=== PATIENT | female | born 1990 | race Caucasian/White ===

== ENCOUNTER → 2016-07-20 | Outpatient (CLI) | payer OTHER, MEDICAID ==
[~2016-07-20] MED LIST: ALPR0.25 PO; HYDR-757 PO; LANS30TA3 PO; NAPR550T PO; NORG1TAB15; OXYC-12 PO; PREN1TAB39 PO; TIZA4TAB3
--- NOTE | 2016-07-20 16:39 | Diagnostic Imaging Report ---
First trimester OB ultrasound. INDICATION: Dating. FINDINGS: There is a normal-appearing single intrauterine . An embryo is seen with cardiac activity at 161 beats per minute. The crown-rump length is at 10 weeks and 6 days. LACEY is 02/09/17. The ovaries are obscured by bowel gas. IMPRESSION: Live single intrauterine . Dictated by: Dictated on workstation # [id number]
== END ==
LOC: RAD 16:15
PROVIDERS: ATTEND Family Medicine
DX: Z34.81 Encounter for supervision of other normal pregnancy, first trimester (principal)
CPT/HCPCS: 76801

== ENCOUNTER → 2016-08-28 | Outpatient (CLI) | payer OTHER, MEDICAID ==
--- NOTE | 2016-08-28 16:10 | Diagnostic Imaging Report ---
Renal arterial duplex ultrasound. INDICATION: Hypertension. FINDINGS: The right kidney is 12.2 and the left kidney is 10.8 cm in length. There is no hydronephrosis. The renal artery velocities are 131, 129 and 110 cm/sec from proximal to distal on the right side and on the left 91, 128, and 91 cm/sec. The resistive index on the right kidney is 0.56 to 0.62 and on the left side is 0.54-0.62. The urinary bladder appears unremarkable. IMPRESSION: Unremarkable exam. No evidence of renal artery stenosis. Dictated by: Dictated on workstation # [id number]
== END ==
LOC: RAD 08:48
PROVIDERS: ATTEND Family Medicine
DX: R03.0 Elevated blood-pressure reading, without diagnosis of hypertension (principal)
CPT/HCPCS: 93975

== ENCOUNTER → 2016-09-22 | Outpatient (CLI) | payer OTHER, MEDICAID ==
--- NOTE | 2016-09-22 16:27 | Diagnostic Imaging Report ---
INDICATION: survey. COMPARISON: 07/20/2016. DISCUSSION: Transabdominal sonographic evaluation of the gravid uterus was performed. Single live intrauterine at 19 weeks 3 days by sonographic measurements. Appropriate interval growth from the first ultrasound. EDC by today's ultrasound is 02/13/2017. presentation is breech. Normal amniotic fluid index. Grade 1 placenta is located posteriorly with no placenta previa. heart rate measures 142 beats per minute. There is good visualization of the kidneys, bladder, stomach, brain, four-chamber heart, three-vessel cord and insertion, spine, and extremities. Biparietal diameter measures 4.4 cm. Head circumference measures 16.4 cm. Abdominal circumference measures 13.8 cm. Femur length measures 3 cm. No abnormal adnexal mass or fluid. Estimated weight is 281 g. IMPRESSION: 1. Single live intrauterine at 19 weeks 3 days by sonographic measurements. 2. Normal anatomical survey. Dictated by: Dictated on workstation # [id number]
== END ==
LOC: RAD 15:45
PROVIDERS: ATTEND Family Medicine
DX: Z36 Encounter for antenatal screening of mother (principal); Z3A.19 19 weeks gestation of pregnancy
CPT/HCPCS: 76805

== ENCOUNTER 2016-10-31 15:30 | Outpatient (CLI) | payer OTHER, MEDICAID ==
[~2016-10-31] VITALS: Ht 167.6 cm; Wt 65.3 kg
[2016-10-31 16:16] VITALS: BP 120/71
[2016-10-31 16:46] VITALS: BP 118/69
[2016-10-31 17:16] VITALS: BP 115/72
[2016-10-31] MEDS ORDERED: SERT25TA5 PO (17:37)
[2016-10-31] MEDS ORDERED: PREN1TAB86 PO (17:37)
--- NOTE | 2016-10-31 17:41 | Diagnostic Imaging Report ---
Indication: Pelvic pain, vaginal bleeding, . Comparison: 09/22/2016. Discussion: Transabdominal sonographic evaluation of the gravid uterus was performed on a limited basis. The cervix is closed and measures 4.5 cm. presentation is cephalic. Single live intrauterine is demonstrated. Gestational age by the first ultrasound is 25 weeks 4 days. EDC by the first ultrasound is 02/09/2017. heart rate measures 153 beats per minute. No acute abnormality identified. No abnormal adnexal mass or fluid. Grade 1 placenta is located posteriorly with no placenta previa. Impression: Single live intrauterine with no acute abnormality identified. Dictated by: Dictated on workstation # [id number]
[2016-10-31 18:15] VITALS: BP 115/72
--- NOTE | 2016-11-01 09:04 | Clinic Account Progress/Dx ---
Clinic Account Progress/Dx DIAGNOSIS: Diagnosis 25 week gestation Hematuria Low back pain Normal ultrasound, no active bleeding, possible kidney stone OMRGAN SIU MD November 01, 2016 09:04
== END 2016-10-31 18:15 | disposition home or self-care (01) ==
LOC: WSo 15:30 → LDRP 15:30 → WSo 18:15
PROVIDERS: ATTEND Family Medicine
DX: O99.89 Other specified diseases and conditions complicating pregnancy, childbirth and the puerperium (principal); R31.9 Hematuria, unspecified; M54.5 Low back pain; Z3A.25 25 weeks gestation of pregnancy
CPT/HCPCS: 76815; 99213

== ENCOUNTER 2016-12-23 16:28 | Outpatient (CLI) | payer OTHER, MEDICAID ==
[~2016-12-23] VITALS: Ht 167.6 cm; Wt 68.9 kg
[~2016-12-23 16:28] MED LIST changes: +PREN1TAB86 PO; +SERT25TA5 PO
[2016-12-23 16:53] VITALS: BP 124/71
[2016-12-23] MEDS ORDERED: NS IV 1000 ML 1,000 ML IV ONE (17:00)
[2016-12-23] MEDS ORDERED: BETAMETHASONE ACE/NA PHOS 6 MG/ML (CELESTONE SOLUSPAN) IM SCH (17:00)
--- NOTE | 2016-12-23 18:22 | Diagnostic Imaging Report ---
EXAM: US LIMITED [id number] INDICATION: ?leaking fluid COMPARISON: Obstetrical ultrasound 10/31/2016. FINDINGS: There is a single intrauterine fetus in the cephalic presentation. There is a grade 2 fundal placenta. heart rate measures 150 beats per minute. GAEL measures 7.4 cm with a tallest vertical pocket of 3.4 cm. Cervical length is 3.5 cm. IMPRESSION: GAEL measures 7.4 cm with the tallest vertical pocket measuring 3.4 cm. Dictated by: Dictated on workstation # [id number]
[2016-12-23] MEDS ORDERED: TERBUTALINE INJ 1 MG/ML (BRETHINE) AMP SC ONE (19:00)
[2016-12-23] MEDS ORDERED: NS IV 1000 ML 1,000 ML IV SCH (19:00)
[2016-12-23] MEDS: TERBUTALINE INJ 1 MG/ML (BRETHINE) AMP SC PRN ×2 (20:05→21:12)
[2016-12-23 22:12] VITALS: BP 120/64
[2016-12-23 22:30] VITALS: BP 120/64
--- NOTE | 2016-12-24 11:30 | Physician Query-Final Dx ---
NAHUN HEAD 12/24/16 1130: Clinic Account Progress/Dx Physician Query: Please give diagnosis Date of Service Dec 23, 2016 at 16:28 MORGAN SIU MD 12/25/16 1154: Clinic Account Progress/Dx DIAGNOSIS: Diagnosis contractions Third trimester bleeding 32 weeks gestation NAHUN HEAD Dec 24, 2016 11:30 MORGAN SUI MD Dec 25, 2016 11:54
== END 2016-12-23 22:30 | disposition home or self-care (01) ==
LOC: LDRP 16:28 → WSo 16:28
PROVIDERS: ATTEND Family Medicine
DX: O60.03 Preterm labor without delivery, third trimester (principal); O46.93 Antepartum hemorrhage, unspecified, third trimester; Z3A.32 32 weeks gestation of pregnancy
CPT/HCPCS: 76815; 96360; 96361; 96372; 99214

== ENCOUNTER 2016-12-24 16:54 | Outpatient (CLI) | payer OTHER, MEDICAID ==
[~2016-12-24 16:54] MED LIST changes: +BETAMETHASONE ACE/NA PHOS 6 MG/ML (CELESTONE SOLUSPAN) ONE
[2016-12-24] MEDS ORDERED: BETAMETHASONE ACE/NA PHOS 6 MG/ML (CELESTONE SOLUSPAN) IM SCH (17:00)
--- NOTE | 2016-12-25 10:14 | Physician Query-Final Dx ---
JEAN SILVA 12/25/16 1014: Clinic Account Progress/Dx Physician Query: Please give diagnosis Date of Service Dec 24, 2016 at 16:54 MORGAN SIU MD 12/25/16 1155: Clinic Account Progress/Dx DIAGNOSIS: Diagnosis contractions JEAN SILVA Dec 25, 2016 10:14 MORGAN SIU MD Dec 25, 2016 11:55
== END 2016-12-24 17:04 | disposition home or self-care (01) ==
LOC: WSo 16:54 → LDRP 16:55 → WSo 17:04
PROVIDERS: ATTEND Family Medicine
DX: O60.00 Preterm labor without delivery, unspecified trimester (principal)
CPT/HCPCS: 96372

== ENCOUNTER 2017-01-15 13:06 | Outpatient (CLI) | payer OTHER, MEDICAID ==
[~2017-01-15 13:06] MED LIST changes: -BETAMETHASONE ACE/NA PHOS 6 MG/ML (CELESTONE SOLUSPAN) ONE
--- NOTE | 2017-01-15 14:20 | Diagnostic Imaging Report ---
INDICATION: Followup maternal gestational hypertension. TECHNIQUE: Multiple real-time grayscale images were obtained over the gravid uterus. COMPARISON: 12/23/2016, 10/31/2016 and 09/22/2016. FINDINGS: Single live intrauterine at 35 weeks 4 days by today's sonographic measurements. Appropriate interval growth. EDC by today's ultrasound is 02/15/2017. presentation is cephalic. There is normal breathing, body movement, tone, and and a normal amniotic fluid index measuring 10 cm for a normal biophysical profile score of 8/8. heart rate measures 155 beats per minute. Grade 2 placenta is located posteriorly with no placenta previa. No acute abnormality identified. Biometrical measurements are as follows: Biparietal 8.8 cm, age 35 weeks 5 days. Head circumference 31.6 cm, age 35 weeks 4 days. Abdominal circumference 31.7 cm, age 35 weeks 5 days. Femur length 6.9 cm, age 35 weeks 2 days. Sonographic estimate age: 35 weeks 4 days. Sonographic estimated date of delivery: 02/15/17. Estimated Weight: 2691 gm (+/- 393 gm). LMP percentile: 28%. heart rate: 155 beats per minute. number: 1 of 1. IMPRESSION: Single live intrauterine at 35 weeks 4 days by today's sonographic measurements with a normal biophysical profile score of 8/8. Dictated by: Dictated on workstation # [id number]
[2017-01-15 14:45] VITALS: BP 130/80
== END 2017-01-15 14:45 | disposition home or self-care (01) ==
LOC: RAD 13:06
PROVIDERS: ATTEND Family Medicine
DX: O13.3 Gestational [pregnancy-induced] hypertension without significant proteinuria, third trimester (principal); Z3A.35 35 weeks gestation of pregnancy
CPT/HCPCS: 76805; 76819

== ENCOUNTER 2017-02-10 06:00 | Inpatient (IN) | payer OTHER, MEDICAID ==
[~2017-02-10] VITALS: Ht 167.6 cm; Wt 70.4 kg
[2017-02-10] VITALS (61 sets, daily range): BP systolic 102–161; BP diastolic 54–91
[2017-02-10] MEDS ORDERED: D5 LR IV SOLUTION 1,000 ML IV ONE (06:03)
--- OUTSIDE RECORDS SUMMARY | 2017-02-10 06:14 | XMS REPORT ---
Author Author MORGAN SIU [facility] eClinicalWorks Address Unknown Phone Unavailable Care Team Providers Care Wet End Tester Name Role Phone MORGAN SIU Unavailable Allergies No Known Allergies Problems Problem Type Condition Code Onset Dates Condition Status Problem Palpitations R00.2 Active Problem Panic attacks F41.0 Active Problem Tension headache, chronic G44.229 Active Medications Medication Code System Code Instructions Start Date End Date Status Dosage Tizanidine HCl [facility] [address]-99 4 MG Orally every 8 hrs October 01, 2015 1 tablet as needed Results No Known Results Summary Purpose eClinicalWorks Submission
--- OUTSIDE RECORDS SUMMARY | 2017-02-10 06:14 | XMS REPORT ---
Author MELANIE Cedeño Organization eClinicalWorks Address Unknown Phone Unavailable Care Team Providers Care Garnett Machine Operator Helper Name Role Phone MELANIE FRAZIER CP Unavailable Allergies, Adverse Reactions, Alerts Substance Reaction Event Type N.K.D.A. Info Not Available Non Drug Allergy Problems Problem Type Condition Code Onset Dates Condition Status Assessment Acute right-sided low back pain with right-sided sciatica M54.41 Active Problem Nummular eczema L30.0 Active Problem Polyarthralgia M25.50 Active Problem Acute right-sided low back pain with right-sided sciatica M54.41 Active Problem Palpitations R00.2 Active Problem Panic attacks F41.0 Active Problem Cervical high risk human papillomavirus (HPV) DNA test positive R87.810 Active Problem Tension headache, chronic G44.229 Active Medications Medication Code System Code Instructions Start Date End Date Status Dosage Morris [facility] [address]-49 5-325 MG Orally every 6 hrs May 04, 2016 1 tablet as needed Alprazolam [facility] [address]-68 0.25 MG Orally Three times a day as needed September 10, 2014 1-2 tablets Cymbalta [facility] [address]-31 30 MG Orally Once a day 1 capsule PredniSONE [facility] [address]-00 20 mg Orally Once a day May 04, 2016 May 09, 2016 2 tablets Tizanidine HCl [facility] [address]-62 4 MG Orally every 8 hrs October 01, 2015 1 tablet as needed Propranolol HCl [facility] [address]-37 40 mg Orally Twice a day Mar 05, 2016 1 tablet Procedures Procedure Coding System Code Date Office Visit, Est Pt., Level 3 CPT-4 20222 May 04, 2016 Vital Signs Date/Time: May 04, 2016 Cardiac Monitoring Heart Rate 106 bpm Weight 129.4 lbs Height 66 in BMI 20.88 Index Blood Pressure Diastolic 88 mmHg Blood Pressure Systolic 150 mmHg Results No Known Results Summary Purpose eClinicalWorks Submission
--- OUTSIDE RECORDS SUMMARY | 2017-02-10 06:15 | XMS REPORT ---
Author Author MORGAN SIU [facility] Address [address] [place] [address] Care Team Providers Care County Court Judge Name Role Phone MORGAN SIU Unavailable PROBLEMS Type Condition ICD9-CM Code [id number] Code Onset Dates Condition Status SNOMED Code Problem Cervical high risk human papillomavirus (HPV) DNA test positive R87.810 Active 740206034 Problem Tension headache, chronic G44.229 Active 131574670 Problem Palpitations R00.2 Active 39539831 Problem Panic attacks F41.0 Active 327025486 ALLERGIES Unknown Allergies SOCIAL HISTORY No smoking Hx information available PLAN OF CARE VITAL SIGNS MEDICATIONS Unknown Medications RESULTS No Results PROCEDURES No Known procedures IMMUNIZATIONS No Known Immunizations
--- OUTSIDE RECORDS SUMMARY | 2017-02-10 06:15 | XMS REPORT ---
Author Author MORGAN SIU [facility] eClinicalWorks Address Unknown Phone Unavailable Care Team Providers Care Field Secretary Name Role Phone MORGAN SIU Unavailable Allergies No Known Allergies Problems Problem Type Condition Code Onset Dates Condition Status Problem Palpitations R00.2 Active Problem Panic attacks F41.0 Active Problem Tension headache, chronic G44.229 Active Assessment Panic attacks F41.0 Active Assessment Chronic prescription benzodiazepine use Z79.899 Active Medications No Known Medications Results No Known Results Summary Purpose eClinicalWorks Submission
--- OUTSIDE RECORDS SUMMARY | 2017-02-10 06:15 | XMS REPORT ---
Author ZAIRE [facility] eClinicalWorks Address Unknown Phone Unavailable Care Team Providers Care Home Therapy Clinician Name Role Phone ZAIRE WATSON CP Unavailable Allergies, Adverse Reactions, Alerts Substance Reaction Event Type N.K.D.A. Info Not Available Non Drug Allergy Problems Problem Type Condition Code Onset Dates Condition Status Problem Palpitations 785.1 Active Problem Anxiety state, unspecified 300.00 Active Problem Metrorrhagia 626.6 Active Assessment Dyspepsia K30 Active Medications Medication Code System Code Instructions Start Date End Date Status Dosage Omeprazole [facility] [address]-46 20 MG Orally Once a day Apr 15, 2015 1 capsule Alprazolam [facility] [address]-00 0.25 MG Orally Three times a day as needed September 10, 2014 1-2 tablets Ortho Tri-Cyclen (28) [facility] [address]-92 0.18/0.215/0.25 MG-35 MCG Orally Once a day November 21, 2014 1 tablet Procedures Procedure Coding System Code Date Office Visit, Est Pt., Level 3 CPT-4 84997 Apr 15, 2015 IMMUNOASSAY,INFECTIOUS AGENT CPT-4 64955 Apr 15, 2015 Vital Signs Date/Time: Apr 15, 2015 Temperature 98.0 F Weight 123 lbs Height 66 in BMI 19.85 Index Blood Pressure Diastolic 62 mmHg Blood Pressure Systolic 112 mmHg Cardiac Monitoring Heart Rate 70 bpm Results Name Result Date Reference Range Unit Abnormality Flag H PYLORI (IN HOUSE) Summary Purpose eClinicalWorks Submission
--- OUTSIDE RECORDS SUMMARY | 2017-02-10 06:15 | XMS REPORT ---
Author Author MORGAN SIU [facility] eClinicalWorks Address Unknown Phone Unavailable Care Team Providers Care Measurement Coordinator Name Role Phone MORGAN SIU CP Unavailable Allergies, Adverse Reactions, Alerts Substance Reaction Event Type N.K.D.A. Info Not Available Non Drug Allergy Problems Problem Type Condition Code Onset Dates Condition Status Assessment Polyarthralgia M25.50 Active Assessment Elevated blood pressure reading R03.0 Active Assessment Nummular eczema L30.0 Active Problem Polyarthralgia M25.50 Active Problem Cervical high risk human papillomavirus (HPV) DNA test positive R87.810 Active Problem Nummular eczema L30.0 Active Problem Panic attacks F41.0 Active Assessment Palpitations R00.2 Active Problem Tension headache, chronic G44.229 Active Problem Palpitations R00.2 Active Medications Medication Code System Code Instructions Start Date End Date Status Dosage Cymbalta [facility] [address]-18 30 MG Orally Once a day 1 capsule Tizanidine HCl [facility] [address]-43 4 MG Orally every 8 hrs October 01, 2015 1 tablet as needed Propranolol HCl [facility] [address]-47 40 mg Orally Twice a day Mar 05, 2016 1 tablet Alprazolam [facility] [address]-11 0.25 MG Orally Three times a day as needed September 10, 2014 1-2 tablets Procedures Procedure Coding System Code Date Office Visit, Est Pt., Level 3 CPT-4 57013 Apr 24, 2016 Vital Signs Date/Time: Apr 24, 2016 Cardiac Monitoring Heart Rate 76 bpm Weight 125.9 lbs Height 66 in BMI 20.32 Index Blood Pressure Diastolic 70 mmHg Blood Pressure Systolic 116 mmHg Results No Known Results Summary Purpose eClinicalWorks Submission
--- OUTSIDE RECORDS SUMMARY | 2017-02-10 06:15 | XMS REPORT ---
Author Author MORGAN SIU [facility] eClinicalWorks Address Unknown Phone Unavailable Care Team Providers Care Filling Hand Name Role Phone MORGAN SIU Unavailable Allergies No Known Allergies Problems Problem Type Condition Code Onset Dates Condition Status Problem Tension headache, chronic G44.229 Active Problem Palpitations R00.2 Active Problem Cervical high risk human papillomavirus (HPV) DNA test positive R87.810 Active Problem Panic attacks F41.0 Active Assessment Encounter for immunization Z23 Active Medications No Known Medications Procedures Procedure Coding System Code Date SINGLE IMMUNIZATION ADMIN CPT-4 87236 Mar 17, 2016 FLUARIX QUAD P-FREE 3 AND UP .50 2015 CPT-4 94904 Mar 17, 2016 Results No Known Results Immunizations Vaccine Administration Date FLUARIX QUAD P-FREE 3 AND UP .50 2015Mar 17, 2016 Summary Purpose eClinicalWorks Submission
--- OUTSIDE RECORDS SUMMARY | 2017-02-10 06:15 | XMS REPORT ---
Author Author MELANIE FRAZIER Organization eClinicalWorks Address Unknown Phone Unavailable Care Team Providers Care Ssis Developer Name Role Phone MELANIE FRAZIER CP Unavailable Allergies, Adverse Reactions, Alerts Substance Reaction Event Type N.K.D.A. Info Not Available Non Drug Allergy Problems Problem Type Condition Code Onset Dates Condition Status Problem Palpitations R00.2 Active Problem Panic attacks F41.0 Active Problem Tension headache, chronic G44.229 Active Assessment Bronchitis J40 Active Medications Medication Code System Code Instructions Start Date End Date Status Dosage Amoxicillin [facility] [address]-05 875 MG Orally every 12 hrs Jan 26, 2016 Feb 05, 2016 1 tablet Ortho Tri-Cyclen (28) [facility] 61727265831 0.18/0.215/0.25 MG-35 MCG Orally Once a day 1 tablet Alprazolam [facility] [address]-90 0.25 MG Orally Three times a day as needed September 10, 2014 1-2 tablets PredniSONE [facility] [address]-11 20 mg Orally Once a day Jan 29, 2016 Feb 03, 2016 2 tablets Promethazine-Codeine [facility] [address]-58 6.25-10 MG/5ML Orally every 6 hrs Jan 29, 2016 5 ml as needed Tylenol [facility] [address]-60 325 MG Orally every 6 hrs 1 tablet as needed Ibuprofen [facility] [address]-72 200 MG Orally every 6 hrs 1 tablet as needed Procedures Procedure Coding System Code Date THER/PROPH/DIAG INJ, SC/IM CPT-4 45121 Jan 29, 2016 Office Visit, Est Pt., Level 3 CPT-4 04999 Jan 29, 2016 SOLUMEDROL (UP TO 125 MG) CPT-4 J2930 Jan 29, 2016 Vital Signs Date/Time: Jan 29, 2016 Cardiac Monitoring Heart Rate 84 bpm Weight 125.6 lbs Height 66 in BMI 20.27 Index Blood Pressure Diastolic 92 mmHg Blood Pressure Systolic 140 mmHg Results No Known Results Summary Purpose eClinicalWorks Submission
--- OUTSIDE RECORDS SUMMARY | 2017-02-10 06:15 | XMS REPORT ---
Author MELANIE Cedeño Organization eClinicalWorks Address Unknown Phone Unavailable Care Team Providers Care Model Maker Scale Name Role Phone MELANIE FRAZIER CP Unavailable Allergies, Adverse Reactions, Alerts Substance Reaction Event Type N.K.D.A. Info Not Available Non Drug Allergy Problems Problem Type Condition Code Onset Dates Condition Status Problem Panic attacks F41.0 Active Assessment Ganglion of wrist, right M67.431 Active Problem Palpitations R00.2 Active Medications Medication Code System Code Instructions Start Date End Date Status Dosage Alprazolam [facility] [address]-33 0.25 MG Orally Three times a day as needed September 10, 2014 1-2 tablets Procedures Procedure Coding System Code Date ASPIRATE/INJ GANGLION CYST CPT-4 87935 Jul 19, 2015 Vital Signs Date/Time: Jul 19, 2015 Temperature 98.1 F Weight 124.1 lbs Height 66 in BMI 20.03 Index Blood Pressure Diastolic 70 mmHg Blood Pressure Systolic 118 mmHg Cardiac Monitoring Heart Rate 92 bpm Results No Known Results Summary Purpose eClinicalWorks Submission
--- OUTSIDE RECORDS SUMMARY | 2017-02-10 06:15 | XMS REPORT ---
Author Author ZAIRE WATSON Organization eClinicalWorks Address Unknown Phone Unavailable Care Team Providers Care Skin Care Instructor Name Role Phone ZAIRE WATSON Unavailable Allergies No Known Allergies Problems Problem Type Condition Code Onset Dates Condition Status Problem Palpitations 785.1 Active Problem Anxiety state, unspecified 300.00 Active Problem Metrorrhagia 626.6 Active Medications Medication Code System Code Instructions Start Date End Date Status Dosage Carafate [facility] [address]-41 1 GM Orally Twice a day Apr 18, 2015 1 tablet on an empty stomach Results No Known Results Summary Purpose eClinicalWorks Submission
--- OUTSIDE RECORDS SUMMARY | 2017-02-10 06:15 | XMS REPORT ---
Author Author DIEUDONNE FU Organization [facility] Address [address] [place] [address] Care Team Providers Care Dye Lab Technician Name Role Phone DIEUDONNE FU Unavailable PROBLEMS Type Condition ICD9-CM Code [id number] Code Onset Dates Condition Status SNOMED Code Problem Tension headache, chronic G44.229 Active 423925020 Problem Palpitations R00.2 Active 41619234 Assessment Encounter for surveillance of contraceptive pills Z30.41 Dec, Active 593914508 Assessment Breast screening Z12.39 Dec, Active 471243098 Problem Panic attacks F41.0 Active 637915133 Assessment Well woman exam with routine gynecological exam Z01.419 Dec Active 545807772 ALLERGIES Substance Reaction Event Type Date Status N.K.D.A. Unknown Non Drug Allergy Dec, Unknown SOCIAL HISTORY No smoking Hx information available PLAN OF CARE VITAL SIGNS Height 66 in 2016-01-08 Weight 125.8 lbs 2016-01-08 Heart Rate 88 bpm 2016-01-08 Respiratory Rate 20 2016-01-08 BMI 20.30 kg/m2 2016-01-08 Blood pressure systolic 116 mmHg 2016-01-08 Blood pressure diastolic 72 mmHg 2016-01-08 MEDICATIONS Medication Instructions Dosage Frequency Start Date End Date Duration Status Alprazolam 0.25 MG Orally Three times a day as needed 1-2 tablets Aug Active Ortho Tri-Cyclen (28) 0.18/0.215/0.25 MG-35 MCG Orally Once a day 1 tablet 24h 28 Active Tylenol 325 MG Orally every 6 hrs 1 tablet as needed 6h Active Ibuprofen 200 MG Orally every 6 hrs 1 tablet as needed 6h Active RESULTS Name Result Date Reference Range PDF Report 2016-01-08 PDF Report1 LCLS PAP TEST, HPV IF ASCUS 2016-01-08 DIAGNOSIS: Recommendation: Specimen adequacy: Clinician provided ICD10: Performed by: Electronically signed by: . . Pathologist provided ICD10: Note: . HPV, high-risk Positive Negative PROCEDURES Procedure Date Ordered Related Diagnosis Body Site SPECIMEN HANDLING January 08, 2016 Preventive Care Est Pt. Age 18-39 January 08, 2016 IMMUNIZATIONS No Known Immunizations
--- OUTSIDE RECORDS SUMMARY | 2017-02-10 06:15 | XMS REPORT ---
Author Author MORGAN SIU [facility] Address [address] [place] [address] Care Team Providers Care Hair Blender Name Role Phone SALBADOR MORGAN Unavailable PROBLEMS Type Condition ICD9-CM Code [id number] Code Onset Dates Condition Status SNOMED Code Assessment Elevated blood pressure I10 Feb, Active 64926766 Assessment Right wrist pain M25.531 Feb, Active 80973614 Assessment Right upper quadrant pain R10.11 Feb, Active 854082307 Problem Tension headache, chronic G44.229 Active 282599914 Problem Palpitations R00.2 Active 13322640 Assessment Rash R21 Feb, Active 824874966 Assessment Multiple stiff joints M25.60 Feb, Active 608679815 Problem Panic attacks F41.0 Active 373298233 Assessment Palpitations R00.2 Feb, Active 31851078 ALLERGIES Substance Reaction Event Type Date Status N.K.D.A. Unknown Non Drug Allergy Feb, Unknown SOCIAL HISTORY No smoking Hx information available PLAN OF CARE VITAL SIGNS Height 66 in 2016-03-05 Weight 125.0 lbs 2016-03-05 Heart Rate 88 bpm 2016-03-05 Respiratory Rate 20 2016-03-05 BMI 20.17 kg/m2 2016-03-05 Blood pressure systolic 146 mmHg 2016-03-05 Blood pressure diastolic 90 mmHg 2016-03-05 MEDICATIONS Medication Instructions Dosage Frequency Start Date End Date Duration Status Propranolol HCl 40 mg Orally Twice a day 1 tablet 12h Feb, 30 day(s) Active Tizanidine HCl 4 MG Orally every 8 hrs 1 tablet as needed 8h Sep, Active Ortho Tri-Cyclen (28) 0.18/0.215/0.25 MG-35 MCG Orally Once a day 1 tablet 24h 28 Active Ibuprofen 200 MG Orally every 6 hrs 1 tablet as needed 6h Active Tylenol 325 MG Orally every 6 hrs 1 tablet as needed 6h Active Alprazolam 0.25 MG Orally Three times a day as needed 1-2 tablets Aug Active RESULTS Name Result Date Reference Range BRIGETTE ANALYZER 2016-03-05 BRIGETTE Direct Negative Negative See below: CBC 2016-03-05 WBC 5.2 3.4-10.8 RBC 4.67 3.77-5.28 Hemoglobin 14.0 11.1-15.9 Hematocrit 40.9 34.0-46.6 MCV 88 79-97 MCH 30.0 26.6-33.0 MCHC 34.2 31.5-35.7 RDW 13.5 12.3-15.4 Platelets 336 150-379 Neutrophils 57 Lymphs 36 Monocytes 6 Eos 1 Basos 0 Neutrophils (Absolute) 3.0 1.4-7.0 Lymphs (Absolute) 1.9 0.7-3.1 Monocytes(Absolute) 0.3 0.1-0.9 Eos (Absolute) 0.1 0.0-0.4 Baso (Absolute) 0.0 0.0-0.2 Immature Granulocytes 0 Immature Grans (Abs) 0.0 0.0-0.1 ESR/SED RATE 2016-03-05 Sedimentation Rate-Westergren 8 0-32 RA (RHEUMATOID) FACTOR 2016-03-05 RA Latex Turbid. 11.1 0.0-13.9 CRP 2016-03-05 C-Reactive Protein, Quant 1.3 0.0-4.9 CMP 2016-03-05 Glucose, Serum 88 65-99 BUN 10 6-20 Creatinine, Serum 0.89 0.57-1.00 eGFR If NonAfricn Am 89 >59 eGFR If Africn Am 103 >59 BUN/Creatinine Ratio 11 8-20 Sodium, Serum 142 134-144 Potassium, Serum 4.5 3.5-5.2 Chloride, Serum 100 97-108 Carbon Dioxide, Total 22 18-29 Calcium, Serum 9.5 8.7-10.2 Protein, Total, Serum 7.4 6.0-8.5 Albumin, Serum 4.7 3.5-5.5 Globulin, Total 2.7 1.5-4.5 A/G Ratio 1.7 1.1-2.5 Bilirubin, Total 0.2 0.0-1.2 Alkaline Phosphatase, S 39 39-117 AST (SGOT) 15 0-40 ALT (SGPT) 10 0-32 Xray : Wrist, Right 3 views (IN HOUSE) 2016-03-05 Ultrasound : Gallbladder 2016-03-11 PROCEDURES Procedure Date Ordered Related Diagnosis Body Site COMPLETE CBC W/AUTO DIFF WBC Mar 05, 2016 COMPREHEN METABOLIC PANEL Mar 05, 2016 VENIPUNCT, ROUTINE* Mar 05, 2016 RBC SED RATE, AUTOMATED Mar 05, 2016 Office Visit, Est Pt., Level 3 Mar 05, 2016 ANTINUCLEAR ANTIBODIES Mar 05, 2016 RHEUMATOID FACTOR, QUANT Mar 05, 2016 C-REACTIVE PROTEIN Mar 05, 2016 X-RAY EXAM OF WRIST Mar 05, 2016 IMMUNIZATIONS No Known Immunizations
--- OUTSIDE RECORDS SUMMARY | 2017-02-10 06:16 | XMS REPORT ---
Author Author MORGAN SIU [facility] eClinicalWorks Address Unknown Phone Unavailable Care Team Providers Care Electrical Line Mechanic Name Role Phone MORGAN SIU Unavailable Allergies No Known Allergies Problems Problem Type Condition Code Onset Dates Condition Status Problem Tension headache, chronic G44.229 Active Problem Palpitations R00.2 Active Problem Cervical high risk human papillomavirus (HPV) DNA test positive R87.810 Active Problem Panic attacks F41.0 Active Medications No Known Medications Results No Known Results Summary Purpose eClinicalWorks Submission
--- OUTSIDE RECORDS SUMMARY | 2017-02-10 06:16 | XMS REPORT ---
Author Author MORGAN SIU [facility] eClinicalWorks Address Unknown Phone Unavailable Care Team Providers Care Limited Radiology Technician Name Role Phone MORGAN SIU Unavailable Allergies No Known Allergies Problems Problem Type Condition Code Onset Dates Condition Status Problem Palpitations R00.2 Active Problem Panic attacks F41.0 Active Problem Tension headache, chronic G44.229 Active Assessment Panic attacks F41.0 Active Assessment Chronic prescription benzodiazepine use Z79.899 Active Medications Medication Code System Code Instructions Start Date End Date Status Dosage Alprazolam [facility] [address]-24 0.25 MG Orally Three times a day as needed September 10, 2014 1-2 tablets Results No Known Results Summary Purpose eClinicalWorks Submission
--- OUTSIDE RECORDS SUMMARY | 2017-02-10 06:16 | XMS REPORT ---
Author Author MORGAN SIU [facility] eClinicalWorks Address Unknown Phone Unavailable Care Team Providers Care Breaking Machine Operator Name Role Phone MORGAN SIU Unavailable Allergies No Known Allergies Problems Problem Type Condition Code Onset Dates Condition Status Problem Panic attacks F41.0 Active Problem Palpitations R00.2 Active Medications Medication Code System Code Instructions Start Date End Date Status Dosage Alprazolam [facility] [address]-05 0.25 MG Orally Three times a day as needed September 10, 2014 1-2 tablets Results No Known Results Summary Purpose eClinicalWorks Submission
--- OUTSIDE RECORDS SUMMARY | 2017-02-10 06:16 | XMS REPORT ---
Author Author MORGAN SIU [facility] eClinicalWorks Address Unknown Phone Unavailable Care Team Providers Care Plywood Factory Worker Name Role Phone MORGAN ISU Unavailable Allergies No Known Allergies Problems Problem Type Condition Code Onset Dates Condition Status Problem Other premature beats 427.69 Active Problem Palpitations 785.1 Active Problem Metrorrhagia 626.6 Active Problem Anxiety state, unspecified 300.00 Active Medications Medication Code System Code Instructions Start Date End Date Status Dosage Alprazolam [facility] [address]-35 0.25 MG Orally Three times a day as needed September 10, 2014 1-2 tablets Results No Known Results Summary Purpose eClinicalWorks Submission
--- OUTSIDE RECORDS SUMMARY | 2017-02-10 06:16 | XMS REPORT ---
Author Author MORGAN SIU [facility] eClinicalWorks Address Unknown Phone Unavailable Care Team Providers Care Plate Mill Hand Name Role Phone MORGAN SIU Unavailable Allergies No Known Allergies Problems Problem Type Condition Code Onset Dates Condition Status Problem Tension headache, chronic G44.229 Active Problem Palpitations R00.2 Active Problem Cervical high risk human papillomavirus (HPV) DNA test positive R87.810 Active Problem Panic attacks F41.0 Active Medications Medication Code System Code Instructions Start Date End Date Status Dosage Alprazolam [facility] [address]-46 0.25 MG Orally Three times a day as needed September 10, 2014 1-2 tablets Results No Known Results Summary Purpose eClinicalWorks Submission
--- OUTSIDE RECORDS SUMMARY | 2017-02-10 06:16 | XMS REPORT ---
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 Active 28622362 Problem Tension headache, chronic G44.229 Active 490400886 Problem Palpitations R00.2 Active 68927872 Problem Polyarthralgia M25.50 Active 88597215 Problem Cervical high risk human papillomavirus (HPV) DNA test positive R87.810 Active 867145475 ALLERGIES Unknown Allergies SOCIAL HISTORY No smoking Hx information available PLAN OF CARE VITAL SIGNS MEDICATIONS Medication Instructions Dosage Frequency Start Date End Date Duration Status Alprazolam 0.25 MG Orally Three times a day as needed 1-2 tablets Aug Active RESULTS No Results PROCEDURES No Known procedures IMMUNIZATIONS No Known Immunizations
--- OUTSIDE RECORDS SUMMARY | 2017-02-10 06:16 | XMS REPORT ---
Author Author MORGAN SIU [facility] Address [address] [place] [address] Care Team Providers Care Senior Court Office Assistant Name Role Phone MORGAN SIU Unavailable PROBLEMS Type Condition ICD9-CM Code [id number] Code Onset Dates Condition Status SNOMED Code Problem Tension headache, chronic G44.229 Active 195034588 Problem Palpitations R00.2 Active 01247059 Problem Panic attacks F41.0 Active 084420828 ALLERGIES Unknown Allergies SOCIAL HISTORY No smoking Hx information available PLAN OF CARE VITAL SIGNS MEDICATIONS Medication Instructions Dosage Frequency Start Date End Date Duration Status Alprazolam 0.25 MG Orally Three times a day as needed 1-2 tablets Aug Active RESULTS No Results PROCEDURES No Known procedures IMMUNIZATIONS No Known Immunizations
--- OUTSIDE RECORDS SUMMARY | 2017-02-10 06:16 | XMS REPORT ---
Author Author MORGAN [facility] eClinical[employer] Address Unknown Phone Unavailable Care Team Providers Care Heel Cutter Name Role Phone MORGAN SIU CP Unavailable Allergies, Adverse Reactions, Alerts Substance Reaction Event Type N.K.D.A. Info Not Available Non Drug Allergy Problems Problem Type Condition Code Onset Dates Condition Status Problem Tension headache, chronic G44.229 Active Problem Palpitations R00.2 Active Problem Cervical high risk human papillomavirus (HPV) DNA test positive R87.810 Active Assessment Atypical squamous cells of undetermined significance on cytologic smear of cervix (ASC-US) R87.610 Active Problem Panic attacks F41.0 Active Assessment Cervical high risk human papillomavirus (HPV) DNA test positive R87.810 Active Medications Medication Code System Code Instructions Start Date End Date Status Dosage Ortho Tri-Cyclen (28) [facility] 36280362044 0.18/0.215/0.25 MG-35 MCG Orally Once a day 1 tablet Propranolol HCl [facility] [address]-79 40 mg Orally Twice a day Mar 05, 2016 1 tablet Alprazolam [facility] [address]-60 0.25 MG Orally Three times a day as needed September 10, 2014 1-2 tablets Tylenol [facility] [address]-38 325 MG Orally every 6 hrs 1 tablet as needed Ibuprofen [facility] [address]-78 200 MG Orally every 6 hrs 1 tablet as needed Tizanidine HCl [facility] [address]-53 4 MG Orally every 8 hrs October 01, 2015 1 tablet as needed Procedures Procedure Coding System Code Date BX/CURETT OF CERVIX W/SCOPE CPT-4 45440 Mar 17, 2016 URINE TEST CPT-4 17538 Mar 17, 2016 Vital Signs Date/Time: Mar 17, 2016 Cardiac Monitoring Heart Rate 90 bpm Weight 126.4 lbs Height 66 in BMI 20.40 Index Blood Pressure Diastolic 74 mmHg Blood Pressure Systolic 112 mmHg Results Name Result Date Reference Range Unit Abnormality Flag PDF Report ----PDF Report1 LCLS [id number] PATHOLOGY REPORT TEST, URINE (IN HOUSE) ----RESULTS Negative [id number] ----Lot # [id number] ----Control + [id number] ----Exp date [id number] COLP W/ BX & ECC Summary Purpose eClinicalWorks Submission
--- OUTSIDE RECORDS SUMMARY | 2017-02-10 06:16 | XMS REPORT ---
Author Author KALPESH REVELES Organization eClinicalWorks Address Unknown Phone Unavailable Care Team Providers Care Cafe Manager Name Role Phone KALPESH REVELES CP Unavailable Allergies, Adverse Reactions, Alerts Substance Reaction Event Type N.K.D.A. Info Not Available Non Drug Allergy Problems Problem Type Condition Code Onset Dates Condition Status Problem Palpitations R00.2 Active Problem Panic attacks F41.0 Active Problem Tension headache, chronic G44.229 Active Assessment Frequent headaches R51 Active Medications Medication Code System Code Instructions Start Date End Date Status Dosage Tylenol [facility] [address]-05 325 MG Orally every 6 hrs 1 tablet as needed Ibuprofen [facility] [address]-10 200 MG Orally every 6 hrs 1 tablet as needed Escitalopram Oxalate [facility] [address]-29 10 MG Orally Once a day August 15, 2015 1 tablet Alprazolam [facility] [address]-24 0.25 MG Orally Three times a day as needed September 10, 2014 1-2 tablets Procedures Procedure Coding System Code Date THER/PROPH/DIAG INJ, SC/IM CPT-4 94184 September 26, 2015 Office Visit, Est Pt., Level 3 CPT-4 02338 September 26, 2015 TORADOL (IM) 15 MG/ML (UP TO 15 MG) CPT-4 J1885 September 26, 2015 Vital Signs Date/Time: September 26, 2015 Temperature 97.9 F Weight 120 lbs Height 66 in BMI 19.37 Index Blood Pressure Diastolic 82 mmHg Blood Pressure Systolic 126 mmHg Cardiac Monitoring Heart Rate 86 bpm Results No Known Results Summary Purpose eClinicalWorks Submission
--- OUTSIDE RECORDS SUMMARY | 2017-02-10 06:16 | XMS REPORT ---
Author Author MORGAN SIU [facility] Address [address] [place] [address] Care Team Providers Care Agriculture Professor Name Role Phone MORGAN SIU Unavailable PROBLEMS Type Condition ICD9-CM Code [id number] Code Onset Dates Condition Status SNOMED Code Problem Cervical high risk human papillomavirus (HPV) DNA test positive R87.810 Active 532319878 Problem Tension headache, chronic G44.229 Active 773224974 Problem Palpitations R00.2 Active 02151277 Problem Panic attacks F41.0 Active 484703468 ALLERGIES Unknown Allergies SOCIAL HISTORY No smoking Hx information available PLAN OF CARE VITAL SIGNS MEDICATIONS Unknown Medications RESULTS No Results PROCEDURES No Known procedures IMMUNIZATIONS No Known Immunizations
--- OUTSIDE RECORDS SUMMARY | 2017-02-10 06:16 | XMS REPORT ---
Author Author MORGAN [facility] [employer]ClinicalWorks Address Unknown Phone Unavailable Care Team Providers Care Color Checker Roving Or Yarn Name Role Phone MORGAN SIU CP Unavailable Allergies, Adverse Reactions, Alerts Substance Reaction Event Type N.K.D.A. Info Not Available Non Drug Allergy Problems Problem Type Condition Code Onset Dates Condition Status Problem Palpitations R00.2 Active Problem Panic attacks F41.0 Active Problem Tension headache, chronic G44.229 Active Assessment Chronic tension-type headache, intractable G44.221 Active Medications Medication Code System Code Instructions Start Date End Date Status Dosage Escitalopram Oxalate [facility] [address]-02 10 MG Orally Once a day August 15, 2015 1 tablet Meloxicam [facility] [address]-47 15 MG Orally Once a day October 01, 2015October 1 tablet Tylenol [facility] [address]-83 325 MG Orally every 6 hrs 1 tablet as needed Ibuprofen [facility] [address]-77 200 MG Orally every 6 hrs 1 tablet as needed Tizanidine HCl [facility] [address]-11 4 MG Orally every 8 hrs October 01, 2015 October 15, 2015 1 tablet as needed Alprazolam [facility] [address]-25 0.25 MG Orally Three times a day as needed September 10, 2014 1-2 tablets Procedures Procedure Coding System Code Date Office Visit, Est Pt., Level 3 CPT-4 91085 October 01, 2015 Vital Signs Date/Time: October 01, 2015 Temperature 97.7 F Weight 120 lbs Height 66 in BMI 19.37 Index Blood Pressure Diastolic 77 mmHg Blood Pressure Systolic 124 mmHg Cardiac Monitoring Heart Rate 88 bpm Results No Known Results Summary Purpose eClinicalWorks Submission
--- OUTSIDE RECORDS SUMMARY | 2017-02-10 06:16 | XMS REPORT ---
Author Author ALICIA GLYNN Organization eClinicalWorks Address Unknown Phone Unavailable Care Team Providers Care Physician'S Aide Name Role Phone ALICIA GLYNN CP Unavailable Allergies, Adverse Reactions, Alerts Substance Reaction Event Type N.K.D.A. Info Not Available Non Drug Allergy Problems Problem Type Condition Code Onset Dates Condition Status Problem Palpitations R00.2 Active Problem Panic attacks F41.0 Active Problem Tension headache, chronic G44.229 Active Assessment Sore throat J02.9 Active Assessment Bilateral otitis media, unspecified chronicity, unspecified otitis media type H66.93 Active Medications Medication Code System Code Instructions Start Date End Date Status Dosage Ibuprofen [facility] [address]-22 200 MG Orally every 6 hrs 1 tablet as needed Amoxicillin [facility] [address]-18 875 MG Orally every 12 hrs Jan 26, 2016 Feb 05, 2016 1 tablet Alprazolam [facility] [address]-50 0.25 MG Orally Three times a day as needed September 10, 2014 1-2 tablets Ortho Tri-Cyclen (28) [facility] 38201310551 0.18/0.215/0.25 MG-35 MCG Orally Once a day 1 tablet Tylenol [facility] [address]-25 325 MG Orally every 6 hrs 1 tablet as needed Procedures Procedure Coding System Code Date Office Visit, Est Pt., Level 3 CPT-4 30728 Jan 26, 2016 STREP A ASSAY W/OPTIC CPT-4 58354 Jan 26, 2016 Vital Signs Date/Time: Jan 26, 2016 Cardiac Monitoring Heart Rate 88 bpm Weight 125.4 lbs Height 66 in BMI 20.24 Index Blood Pressure Diastolic 94 mmHg Blood Pressure Systolic 136 mmHg Results No Known Results Summary Purpose eClinicalWorks Submission
[2017-02-10] MEDS ORDERED: OXYTOCIN/NORMAL SALINE 500 ML IV SCH ×2 (06:23→16:12)
[2017-02-10] MEDS ORDERED: MINERAL OIL CONCENTRATE 99.9% 15 ML UDC TOP PRN (06:30)
[2017-02-10] MEDS: D5 LR IV SOLUTION 1,000 ML IV SCH ×2 (06:30→14:26)
[2017-02-10 06:46] LABS: BASOPHILS % (AUTO) 0 % (0-10); EOSINOPHILS # (AUTO) 0.2 10^3/uL (0.0-0.3); EOSINOPHILS % (AUTO) 2 % (0-10); LYMPHOCYTES # (AUTO) 2.2 X 10^3 (1.0-4.0); LYMPHOCYTES % (AUTO) 23 % (12-44); MEAN CORPUSCULAR HEMOGLOBIN 30 PG (25-34); MEAN CORPUSCULAR HGB CONC 34 G/DL (32-36); MEAN CORPUSCULAR VOLUME 88 FL (80-99); MEAN PLATELET VOLUME 10.4 FL (7.4-10.4); MONOCYTES # (AUTO) 0.9 X 10^3 (0.0-1.0); MONOCYTES % (AUTO) 9 % (0-12); NEUTROPHILS # (AUTO) 6.2 X 10^3 (1.8-7.8); NEUTROPHILS % (AUTO) 66 % (42-75); PLATELET COUNT 177 10^3/uL (130-400); RED BLOOD COUNT 4.08 10^6/uL (4.35-5.85); RED CELL DISTRIBUTION WIDTH 13.5 % (10.0-14.5); WHITE BLOOD COUNT 9.5 10^3/uL (4.3-11.0)
[2017-02-10] MEDS ORDERED: LACTATED RINGERS 1,000 ML IV ONE (08:48)
[2017-02-10] MEDS ORDERED: SUFENTA 0.6MCG/ML BUPIVA 0.125 100 ML ONE (08:49)
--- NOTE | 2017-02-10 09:33 | History & Physical-OB ---
OB - Chief Complaint & HPI Date/Time Date of Admission: Date of Admission: Feb 10, 2017 at 6:00 am Time Seen by Provider: 08:45 Chief Complaint/History OB-Reason for Admission/Chief: Induction of Labor Hx : 2 Hx Para: 1 Expected Date of Delivery: Feb 13, 2017 Gestational Age in Weeks: 39 Gestational Age in Days: 4 History of Labs O+, antibody neg, RI, HIV/RPR/Hep B neg. GC/chlamydia neg. Glucola normal. GBS neg. Allergies and Home Medications Allergies Coded Allergies: No Known Drug Allergies (Unverified , 02/01/12) Home Medications Vit W-Ca,Fe,FA(<1 mg) 1 Each Tablet, 1 EACH PO DAILY, (Reported) OB - History Hx of Present Care: Yes Ultrasounds: Normal mid trimester US Obstetrical Complications: Other (intermittent hypertension (predating ), labor treated with betamethasone) Obstetrical History Hx : 2 Hx Para: 1 Hx # Term Pregnancies: 1 Hx # Pregnancies: 0 Number of Living Children: 1 Hx Multiple Gestation: No Hx Ectopic : No Hx Stillbirth: No Hx Complication: No Hx Maternal Gestational Diabet: No Hx Hemorrhage: No Delivery History Hx Dystocia: No Hx Forceps Assisted Delivery: No Hx Vacuum Extraction Assisted: No Hx Placenta Abnormality: No Hx Distress: No Hx Large For Gestational Age I: No Hx Small for Gestational Age I: No Hx Section: No Hx Vaginal Delivery Post C-Sec: No Hx Blood Disorders: No Adverse Rxn to Tranfusion: No Patient Past Medical History PMHx: Anxiety Hypertension Social History/Family History HIV/AIDS: No Recent Infectious Disease Expo: No Alcohol Use: Denies Use Recreational Drug Use: No Smoking Cessation: Never smoker Immunizations Tetanus Booster (TDap): Less than 5yrs Date of Influenza Vaccine: Mar 14, 2015 Rubella: immune RPR/VDRL: Negative GBS Status: Negative HBsAG: Negative OB - Admission Exam Physical Exam Date Seen by Provider: Feb 10, 2017 Time Seen by Provider: 09:31 HEENT: NCAT Abdomen: Non tender Extremities: Normal Cervical Dilatation: 3cm Effacement: 75% Station: +2 Membranes: Intact Heart Rate: 140's Accelerations: Accelerations Present Decelerations: No Decelerations Short Term Variability: Present Shelter Variability: Average (6-25) Contractions on Admission: < 5 Minutes Apart Intensity: Moderate Cruz Scoring Tool (Modified) Dilation (cm): 3-4cm (2) Effacement (%): 51-79% (2) Descent/Station: -3 (0) Cervix Consistency: Soft (2) Cervix Position: Posterior (0) Add 1 point for: Each previous vaginal delivery (1) Cruz Score: 7 Labs Laboratory Tests Test 02/10/17 06:30 Range/Units White Blood Count 9.5 4.3-11.0 10^3/uL Red Blood Count 4.08 L 4.35-5.85 10^6/uL Hemoglobin 12.3 11.5-16.0 G/DL Hematocrit 36 35-52 % Mean Corpuscular Volume 88 80-99 FL Mean Corpuscular Hemoglobin 30 25-34 PG Mean Corpuscular Hemoglobin Concent 34 32-36 G/DL Red Cell Distribution Width 13.5 10.0-14.5 % Platelet Count 177 130-400 10^3/uL Mean Platelet Volume 10.4 7.4-10.4 FL Neutrophils (%) (Auto) 66 42-75 % Lymphocytes (%) (Auto) 23 12-44 % Monocytes (%) (Auto) 9 0-12 % Eosinophils (%) (Auto) 2 0-10 % Basophils (%) (Auto) 0 0-10 % Neutrophils # (Auto) 6.2 1.8-7.8 X 10^3 Lymphocytes # (Auto) 2.2 1.0-4.0 X 10^3 Monocytes # (Auto) 0.9 0.0-1.0 X 10^3 Eosinophils # (Auto) 0.2 0.0-0.3 10^3/uL Basophils # (Auto) 0.0 0.0-0.1 10^3/uL OB - Assessment/Plan/Diagnosis Assessment Assessment: induction of labor Plan Plan: Induction Induction Method: per Pitocin Protocol Other Plan AROM done at 0845 with clear fluid Copy Copies To 1: MORGAN SIU MD, BETHANY N MD Feb 10, 2017 9:33 am
[2017-02-10] MEDS ORDERED: fentaNYL INJECTION 100 MCG/2 ML AMP ONE (10:11)
[2017-02-10] MEDS ORDERED: CATHETER FLUSH 10 ML SYR IV SCH ×2 (14:00→22:00)
--- NOTE | 2017-02-10 16:04 | OB Labor & Delivery Record ---
Vag Delivery Note Vag Delivery Note Date of Delivery: 02/10/17 Preoperative Diagnosis: Kelli Valentino is a 26 /Para 2 / 1,Gestational Age (wks)39with 4 days Postoperative Diagnosis: Same Surgeon: MORGAN SIU Anesthesia: Epidural Delivery Type: spontaneous vaginal delivery Findings: [] Viable female , apgars [], weight [] Lacerations: first degree perineal, periurethral abrasion Intact placenta with 3 vessel cord. No nuchal cord, body cord or shoulder dystocia Estimated Blood Loss: 200 ml Complications: None Condition: Stable Description of Procedure: The patient is a G2 now P2 who presented for elective IOL at term. She was admitted and informed consent was obtained. Her labor course was unremarkable She progressed to complete dilatation and began to push. She was then set up for delivery. The infant's head was delivered atraumatically in the Michi position. The shoulders and remainder of the 's body were then delivered without difficulty. Upon delivery, the infant cried immediately and was placed on maternal abdomen. After a delay, the cord was doubly clamped and cut and the was handed off to the pediatric staff. An intact placenta with 3-vessel cord delivered via Lianne and there was found to be minimal bleeding.~ Vigorous fundal massage was performed and the fundus was found to be firm. IV oxytocin was given. Examination of the vagina and perineum revealed a first degree perineal laceration repaired with one simple interrupted 3-0 rapide. Following the repair, sponge, instrument and needle counts were correct. Mom and baby were both in stable condition in the labor suite. Vitals - Labs Vital Signs - I&O Vital Signs Date Time Temp Pulse Resp B/P (MAP) Pulse Ox O2 Delivery O2 Flow Rate FiO2 02/10/17 12:30 75 18 112/56 97 Room Air 02/10/17 12:15 77 18 122/77 98 Room Air 02/10/17 12:10 76 18 120/61 98 Room Air 02/10/17 12:05 84 18 110/71 99 Room Air 02/10/17 12:00 78 18 127/60 99 Room Air 02/10/17 11:50 91 18 109/54 Room Air 02/10/17 11:45 81 18 120/67 Room Air 02/10/17 11:40 90 18 118/86 Room Air 02/10/17 11:35 85 18 128/66 Room Air 02/10/17 11:30 105 18 130/63 Room Air 02/10/17 11:25 91 18 142/62 Room Air 02/10/17 11:20 78 18 125/61 Room Air 02/10/17 11:15 80 18 107/66 99 Room Air 02/10/17 11:10 84 18 132/58 99 Room Air 02/10/17 11:05 97.5 77 18 102/55 98 Room Air 02/10/17 11:00 80 18 107/66 99 Room Air 02/10/17 10:55 81 18 119/72 Room Air 02/10/17 10:50 78 18 129/58 Room Air 02/10/17 10:45 96 18 127/60 Room Air 02/10/17 10:35 82 18 122/73 100 Room Air 02/10/17 10:30 88 18 125/57 100 Room Air 02/10/17 10:25 93 18 122/63 100 Room Air 02/10/17 10:20 89 18 121/66 99 Room Air 02/10/17 10:15 94 18 115/58 100 Room Air 02/10/17 10:10 111 18 121/61 100 Room Air 02/10/17 10:05 99 18 125/69 100 Room Air 02/10/17 10:00 99 18 100 Room Air 02/10/17 09:56 95 18 129/71 100 Room Air 02/10/17 09:53 87 18 121/66 100 Room Air 02/10/17 09:50 94 20 129/61 100 Room Air 02/10/17 09:45 103 18 142/65 100 Room Air 02/10/17 09:44 97 20 141/81 98 Room Air 02/10/17 09:41 88 20 128/69 Room Air 02/10/17 09:30 88 18 135/68 Room Air 02/10/17 09:15 80 18 129/80 Room Air 02/10/17 09:00 83 18 129/80 Room Air 02/10/17 08:45 83 18 124/90 Room Air 02/10/17 08:30 96 18 137/91 Room Air 02/10/17 08:15 81 18 123/77 Room Air 02/10/17 08:00 88 18 119/82 Room Air 02/10/17 07:45 91 18 119/82 Room Air 8/30/17 07:30 97.3 95 18 134/90 Room Air Labs Laboratory Tests 02/10/17 06:30: White Blood Count 9.5, Red Blood Count 4.08L, Hemoglobin 12.3, Hematocrit 36, Mean Corpuscular Volume 88, Mean Corpuscular Hemoglobin 30, Mean Corpuscular Hemoglobin Concent 34, Red Cell Distribution Width 13.5, Platelet Count 177, Mean Platelet Volume 10.4, Neutrophils (%) (Auto) 66, Lymphocytes (%) (Auto) 23 , Monocytes (%) (Auto) 9, Eosinophils (%) (Auto) 2, Basophils (%) (Auto) 0, Neutrophils # (Auto) 6.2, Lymphocytes # (Auto) 2.2, Monocytes # (Auto) 0.9, Eosinophils # (Auto) 0.2, Basophils # (Auto) 0.0 MORGAN SIU MD Feb 10, 2017 4:04 pm
[2017-02-10] MEDS ORDERED: WITCH HAZEL(TUCKS) 40 EA JAR TOP PRN (16:15)
[2017-02-10] MEDS ORDERED: BENZOCAINE/MENTHOL (DERMOPLAST) 56 ML CAN TP PRN (16:15)
[2017-02-10] MEDS: IBUPROFEN 600 MG (MOTRIN) TAB PO SCH ×2 (18:20→23:57)
[2017-02-11 02:33] VITALS: BP 122/79
[2017-02-11 05:40] LABS: BASOPHILS % (AUTO) 0 % (0-10); EOSINOPHILS # (AUTO) 0.2 10^3/uL (0.0-0.3); EOSINOPHILS % (AUTO) 2 % (0-10); LYMPHOCYTES # (AUTO) 2.3 X 10^3 (1.0-4.0); LYMPHOCYTES % (AUTO) 20 % (12-44); MEAN CORPUSCULAR HEMOGLOBIN 30 PG (25-34); MEAN CORPUSCULAR HGB CONC 34 G/DL (32-36); MEAN CORPUSCULAR VOLUME 89 FL (80-99); MEAN PLATELET VOLUME 10.8 FL (7.4-10.4); MONOCYTES # (AUTO) 0.9 X 10^3 (0.0-1.0); MONOCYTES % (AUTO) 9 % (0-12); NEUTROPHILS # (AUTO) 7.7 X 10^3 (1.8-7.8); NEUTROPHILS % (AUTO) 69 % (42-75); PLATELET COUNT 161 10^3/uL (130-400); RED BLOOD COUNT 3.84 10^6/uL (4.35-5.85); RED CELL DISTRIBUTION WIDTH 13.4 % (10.0-14.5); WHITE BLOOD COUNT 11.1 10^3/uL (4.3-11.0)
[2017-02-11 05:45] VITALS: BP 113/76
[2017-02-11] MEDS: IBUPROFEN 600 MG (MOTRIN) TAB PO SCH ×4 (05:45→17:54)
[2017-02-11] MEDS ORDERED: PRENATAL VITAMIN 1 EA TAB PO SCH (07:00)
[2017-02-11 07:57] VITALS: BP 125/84
[2017-02-11] MEDS ORDERED: HYDROcodone/APAP 5 MG/325 MG (LORTAB) TAB PO PRN (10:00)
[2017-02-11] MEDS ORDERED: HYDR-3812 PO (10:52)
[2017-02-11] MEDS ORDERED: IBUP-1773 PO (10:52)
--- NOTE | 2017-02-11 10:54 | Discharge Instructions ---
Discharge Inst-Women's Serv Depart Medications New, Converted or Re-Newed RX: RX on Chart New Medications: Hydrocodone/Acetaminophen (Hydrocodon -Acetaminophen 5-325) 1 Each Tablet 1 TAB PO Q4H PRN for PAIN-MODERATE, #15 TAB 0 Refills Ibuprofen (Ibuprofen) 600 Mg Tablet 600 MG PO Q6H PRN for PAIN-MILD TO MODERATE, #60 TAB 0 Refills Continued Medications: Vit W-Ca,Fe,FA(<1 mg) ( Vitamins) 1 Each Tablet 1 EACH PO DAILY, TAB Follow Up/Instructions Goal/Follow Up: Follow up with Dr. Chaney in 6 weeks for visit. Activity Activity: Activity as Tolerated (avoid strenuous acitivity x 6 weeks) Driving Instructions: You May Drive (do not drive while on sedating pain medications) Nothing Inside Vagina: No Douching, No Prosperity, No Tampons Diet Discharge Diet: Regular Diet Symptoms to Report to : Swelling Increased, Bleeding Excessive, Fever Over 101 Degrees F, Pain/Pressure in Chest, Pain/Pressure in Jaw, Cramps in Feet or Legs, Vaginal Discharge Foul, Shortness of Breath For Any Problems or Questions: Contact Your Physician Copies To 1: MORGAN CHANEY MD, BETHANY N MD Feb 11, 2017 10:54
--- NOTE | 2017-02-11 10:59 | Discharge Summary ---
Diagnosis/Chief Complaint Date of Admission Feb 10, 2017 at 06:00 Date of Discharge Feb 11, 2017 Admission Diagnosis Admission Diagnosis Term intrauterine at 39 weeks GBS negative RI O positive blood type Discharge Diagnosis s/p spontaneous vaginal delivery with first degree perineal laceration repair GBS negative RI O positive blood type Chief Complaint/HPI Chief Complaint/HPI 26 yo G2 now P2 at 39w4d admitted for elective induction of labor at term. Discharge Summary-Simple/Stand Procedures Spontaneous vaginal delivery with first degree perineal laceration repair Discharge Physical Examination Allergies: Coded Allergies: No Known Drug Allergies (Unverified , 02/01/12) Vitals & I&Os Vital Sign - Last 12Hours Date Time Temp Pulse Resp B/P (MAP) Pulse Ox O2 Delivery O2 Flow Rate FiO2 02/11/17 07:57 99.0 82 16 125/84 99 Room Air General Appearance: Alert, No Acute Distress HEENT: Atraumatic Respiratory: Clear to Auscultation, Normal Air Movement Cardiovascular: Regular Rate, No Murmurs Abdominal: Normal Bowel Sounds, Other (fundus firm below umbilicus) Extremities: No Edema Neuro: Normal Speech Psych/Mental Status: Mental Status NL Hospital Course Labor and delivery uncomplicated, course uncomplicated with no anemia. Labs Laboratory Tests Test 02/10/17 06:30 02/11/17 04:52 Range/Units White Blood Count 9.5 11.1 H 4.3-11.0 10^3/uL Red Blood Count 4.08 L 3.84 L 4.35-5.85 10^6/uL Hemoglobin 12.3 11.5 11.5-16.0 G/DL Hematocrit 36 34 L 35-52 % Mean Corpuscular Volume 88 89 80-99 FL Mean Corpuscular Hemoglobin 30 30 25-34 PG Mean Corpuscular Hemoglobin Concent 34 34 32-36 G/DL Red Cell Distribution Width 13.5 13.4 10.0-14.5 % Platelet Count 177 161 130-400 10^3/uL Mean Platelet Volume 10.4 10.8 H 7.4-10.4 FL Neutrophils (%) (Auto) 66 69 42-75 % Lymphocytes (%) (Auto) 23 20 12-44 % Monocytes (%) (Auto) 9 9 0-12 % Eosinophils (%) (Auto) 2 2 0-10 % Basophils (%) (Auto) 0 0 0-10 % Neutrophils # (Auto) 6.2 7.7 1.8-7.8 X 10^3 Lymphocytes # (Auto) 2.2 2.3 1.0-4.0 X 10^3 Monocytes # (Auto) 0.9 0.9 0.0-1.0 X 10^3 Eosinophils # (Auto) 0.2 0.2 0.0-0.3 10^3/uL Basophils # (Auto) 0.0 0.0 0.0-0.1 10^3/uL Discharge Instructions to patient/family Please see electonic discharge instructions given to patient. Discharge Medications Reviewed and agree with Discharge Medication list on patient's Discharge Instruction sheet Clinical Quality Measures DVT/VTE Risk/Contraindication: Risk Factor Score Per Nursin RFS Level Per Nursing on Admit: 1=Low/No VTE PPX Copy Copies To 1: MORGAN SIU MD, BETHANY N MD Feb 11, 2017 10:59
[2017-02-11 11:00] VITALS: BP 121/79
--- NOTE | 2017-02-11 14:09 | Anesthesia-Regional Post-Op ---
Regional Patient Condition Mental Status: Alert, Oriented x3 Circulation: Same as Pre-Op Headache: Absent Sensation: Full Recovery Motor Block: Absent Post Op Complications Complications None Follow Up Care/Instructions Patient Instructions None needed. Anesthesia/Patient Condition Patient is doing well, no complaints, stable vital signs, no apparent adverse anesthesia problems. No complications reported per nursing. NANCY MILLS CRNA Feb 11, 2017 14:09
[2017-02-11 17:53] VITALS: BP 126/87
== END 2017-02-11 18:05 | disposition home or self-care (01) | DRG 775 ==
LOC: LDRP 06:00
PROVIDERS: ADMIT Family Medicine; ATTEND Family Medicine
PROC: 10E0XZZ Delivery of Products of Conception, External Approach (ICD-10-PCS; principal; 2017-02-10)
PROC: 0HQ9XZZ Repair Perineum Skin, External Approach (ICD-10-PCS; 2017-02-10)
PROC: 3E033VJ Introduction of Other Hormone into Peripheral Vein, Percutaneous Approach (ICD-10-PCS; 2017-02-10)
DX: O70.0 First degree perineal laceration during delivery (principal); Z3A.39 39 weeks gestation of pregnancy; Z37.0 Single live birth
CPT/HCPCS: 36415; 85025; 86850; 86900; 86901

== ENCOUNTER → 2017-10-08 | Outpatient (CLI) | payer MEDICAID, OTHER ==
[~2017-10-08] MED LIST changes: +ACHD5005 PO; +IBUP-1773 PO; +NAPR-1070 PO; -NAPR550T PO
--- NOTE | 2017-10-08 10:34 | Diagnostic Imaging Report ---
Indication: Pelvic pain. Technique: Newberry scale, color flow and duplex Doppler evaluation for transabdominal/transvaginal pelvis. Findings: Uterus measures 10.4 x 5.9 x 3.9 cm. Endometrium is 8 mm in thickness. No uterine mass is identified. The right ovary measures 3.1 x 1.9 x 2.3 cm and the left ovary measures 2.4 x 1.9 x 2.5 cm. Left ovary does contain an 18 mm cyst. There is blood flow to the ovaries. No free fluid is seen. Impression: Small left ovarian cyst. Study is otherwise unremarkable. Dictated by: Dictated on workstation # [id number]
== END ==
LOC: RAD 09:03
PROVIDERS: ATTEND Family Medicine
DX: N83.202 Unspecified ovarian cyst, left side (principal)
CPT/HCPCS: 76830; 76856

== ENCOUNTER → 2019-01-11 | Outpatient (CLI) | payer OTHER ==
[~2019-01-11] MED LIST changes: +HYDR-4226 PO; -HYDR-757 PO
== END | disposition home or self-care (01) ==
LOC: PREOP 09:55
PROVIDERS: ATTEND Obstetrics & Gynecology
DX: Z01.818 Encounter for other preprocedural examination (principal)

== ENCOUNTER → 2019-04-25 | Outpatient (CLI) | payer OTHER ==
[~2019-04-25] MED LIST changes: -TIZA4TAB3; +TIZA4TAB4
--- NOTE | 2019-04-25 09:51 | Diagnostic Imaging Report ---
PROCEDURE: MR imaging cervical spine without contrast. TECHNIQUE: Multiplanar, multisequence MR imaging of the cervical spine was performed without contrast. INDICATION: Neck pain. COMPARISON: None available. FINDINGS: Normal alignment of the cervical spine. No fracture or marrow replacing process. No active facet synovitis. Cervical cord is normal in size and signal. Specifically, there is no abnormal intramedullary signal within the cervical cord. Paravertebral musculature is normal. There are no disc bulges or herniations within the cervical spine. There is mild uncovertebral joint hypertrophy on the left at C5-C6 resulting in mild foraminal narrowing. Otherwise, no areas of neural foraminal narrowing are present. IMPRESSION: 1. Single level mild left neural foraminal narrowing due to uncovertebral joint hypertrophy at C5-C6. 2. Remainder of the cervical spine is normal. Dictated by: Dictated on workstation # [id number]
== END ==
LOC: RAD 07:59
PROVIDERS: ATTEND Nurse Practitioner Community Health
DX: M54.12 Radiculopathy, cervical region (principal); M48.02 Spinal stenosis, cervical region; R51 Headache
CPT/HCPCS: 72141

== ENCOUNTER → 2020-02-06 | Outpatient (CLI) | payer OTHER ==
[~2020-02-06] MED LIST changes: +GADOBUTROL 7.5 MMOL/7.5 ML (GADAVIST) VIAL IV ONE
--- NOTE | 2020-02-06 09:36 | Diagnostic Imaging Report ---
PROCEDURE: MR imaging of the brain with and without contrast. TECHNIQUE: Multiplanar, multisequence MR imaging of the brain was performed with and without contrast. INDICATION: Balance problems. Right leg weakness. Falls. COMPARISON: None. FINDINGS: No abnormal intracranial signal. No restricted water diffusion or hemosiderin deposition. Normal morphology including the major midline structures, sella, posterior fossa and cerebellar pontine angle. No hydrocephalus or extra-axial fluid collections. Normal intracranial flow voids. The paranasal sinuses and mastoids are clear. The orbits are negative. Normal bone marrow signal. IMPRESSION: Normal MRI of the brain without and with IV contrast. Dictated by: Dictated on workstation # [id number]
== END ==
LOC: RAD 07:40
PROVIDERS: ATTEND Family Medicine
DX: R26.89 Other abnormalities of gait and mobility (principal); R29.898 Other symptoms and signs involving the musculoskeletal system; R20.2 Paresthesia of skin; R20.0 Anesthesia of skin; R29.6 Repeated falls
CPT/HCPCS: 70553

== ENCOUNTER → 2020-06-20 | Outpatient (CLI) | payer OTHER ==
[~2020-06-20] MED LIST changes: +CATHETER FLUSH 10 ML SYR IV PRN; -GADOBUTROL 7.5 MMOL/7.5 ML (GADAVIST) VIAL IV ONE; +HOLD METFORMIN - RECEIVED CONTRAST 20 ML VIAL IV SCH; +IOHEXOL 350 MG/ML 100 ML (OMNIPAQUE 350) VIAL IV ONE; +NS 100 ML (IVPB) BAG IV ONE
--- NOTE | 2020-06-20 09:41 | Diagnostic Imaging Report ---
PROCEDURE: CT abdomen and pelvis with contrast. TECHNIQUE: Multiple contiguous axial images were obtained through the abdomen and pelvis after administration of intravenous contrast. Auto Exposure Controls were utilized during the CT exam to meet ALARA standards for radiation dose reduction. All CT scans use one or more of the following dose optimizing techniques: automated exposure control, MA and/or KvP adjustment based on patient size and exam type or iterative reconstruction. INDICATION: Upper abdominal pain and pelvic pain. No prior studies are available for comparison. Lung bases are clear. The liver and gallbladder are unremarkable. No biliary ductal dilatation is seen. Pancreas and spleen are unremarkable. No adrenal mass is detected. Kidneys are unremarkable. Aorta is non-aneurysmal. Small and large bowel loops are normal caliber. No obstruction is seen. Appendix is visualized in the right lower quadrant and unremarkable. No free fluid or fluid collection is seen. There is moderate stool throughout the colon. Uterus and bladder are unremarkable. IMPRESSION: Moderate stool suggestive of constipation. Study is otherwise unremarkable. No acute abnormality is identified. Dictated by: Dictated on workstation # [id number]
== END ==
LOC: RAD 08:35
PROVIDERS: ATTEND Family Medicine
DX: R10.13 Epigastric pain (principal); R10.2 Pelvic and perineal pain; R19.5 Other fecal abnormalities
CPT/HCPCS: 74177

== ENCOUNTER → 2020-07-19 | Outpatient (CLI) | payer OTHER ==
[~2020-07-19] MED LIST changes: -CATHETER FLUSH 10 ML SYR IV PRN; -HOLD METFORMIN - RECEIVED CONTRAST 20 ML VIAL IV SCH; -IOHEXOL 350 MG/ML 100 ML (OMNIPAQUE 350) VIAL IV ONE; -NS 100 ML (IVPB) BAG IV ONE
--- NOTE | 2020-07-19 11:51 | Diagnostic Imaging Report ---
INDICATION: Routine screening. No prior mammograms are available for comparison. This a baseline study. 2-D and 3-D bilateral screening mammography was performed with CAD. Both breasts are heterogeneously dense, limiting the sensitivity of mammography. No mass or malignant appearing microcalcifications are seen. Occasional benign calcifications are noted. Axillae are unremarkable. IMPRESSION: BI-RADS Category 2 No mammographic features suspicious for malignancy are identified. ACR BI-RADS Category 2: Benign findings. Result letter will be mailed to the patient. Note: At least 10% of breast cancer is not imaged by mammography. Dictated by: Dictated on workstation # [id number]
== END ==
LOC: RAD 08:16
PROVIDERS: ATTEND Obstetrics & Gynecology
DX: Z12.31 Encounter for screening mammogram for malignant neoplasm of breast (principal)
CPT/HCPCS: 77063; 77067

== ENCOUNTER 2020-09-11 05:32 | Outpatient (CLI) | payer OTHER ==
[~2020-09-11] VITALS: Ht 167.7 cm; Wt 56.8 kg
[~2020-09-11 05:32] MED LIST changes: +SERT-412 PO; -SERT25TA5 PO
[2020-09-11] MEDS ORDERED: METH36TA4 PO (15:34)
[2020-09-11] MEDS ORDERED: METH5TAB86 PO (15:34)
[2020-09-11] MEDS ORDERED: TIZA4TAB11 PO (15:34)
== END 2020-09-11 15:40 | disposition home or self-care (01) ==
LOC: PREOP 05:32
PROVIDERS: ATTEND Obstetrics & Gynecology
DX: Z01.818 Encounter for other preprocedural examination (principal)

== ENCOUNTER 2020-09-18 10:57 | Day surgery (SDC) | payer OTHER ==
[2020-09-18] VITALS (12 sets, daily range): BP systolic 107–127; BP diastolic 60–90
[~2020-09-18] VITALS: Ht 167.7 cm; Wt 56.8 kg
[~2020-09-18 10:57] MED LIST changes: +METH36TA4 PO; +METH5TAB86 PO; +TIZA4TAB11 PO
[2020-09-18] MEDS ORDERED: ceFAZolin INJECTION 1,000 MG in WATER (STERILE) FOR INJECTION 10 ML IV ONE (11:15)
[2020-09-18 11:49] LABS: BASOPHILS % (AUTO) 1 % (0-10); EOSINOPHILS # (AUTO) 0.1 10^3/uL (0.0-0.3); EOSINOPHILS % (AUTO) 2 % (0-10); HEMATOCRIT 40 % (35-52); HEMOGLOBIN 13.5 g/dL (11.5-16.0); LYMPHOCYTES # (AUTO) 1.7 10^3/uL (1.0-4.0); LYMPHOCYTES % (AUTO) 30 % (12-44); MEAN CORPUSCULAR HEMOGLOBIN 30 pg (25-34); MEAN CORPUSCULAR HGB CONC 34 g/dL (32-36); MEAN CORPUSCULAR VOLUME 90 fL (80-99); MONOCYTES # (AUTO) 0.4 10^3/uL (0.0-1.0); MONOCYTES % (AUTO) 7 % (0-12); NEUTROPHILS # (AUTO) 3.4 10^3/uL (1.8-7.8); NEUTROPHILS % (AUTO) 60 % (42-75); PLATELET COUNT 226 10^3/uL (130-400); WHITE BLOOD COUNT 5.7 10^3/uL (4.3-11.0)
[2020-09-18] MEDS: LACTATED RINGERS 1,000 ML IV PRN ×2 (11:50→13:52)
[2020-09-18] MEDS ORDERED: GLYCOPYRROLATE 0.2 MG/ML (ROBINUL) 2 ML VIAL ONE (11:57)
[2020-09-18] MEDS ORDERED: SEVOFLURANE (ULTANE) 15 ML INHAL SOLN ONE ×3 (11:57→14:29)
[2020-09-18] MEDS ORDERED: LIDOCAINE PF 2% 5 ML (XYLOCAINE) VIAL ONE (11:57)
[2020-09-18] MEDS ORDERED: ONDANSETRON 4 MG/2 ML (SDV) Z0FRAN ONE (11:57)
[2020-09-18] MEDS ORDERED: proPOfol 200 MG/20 ML (DIPRIVAN) VIAL IV ONE (11:57)
[2020-09-18] MEDS ORDERED: ROCURONIUM 10 MG/ML 5 ML SYRINGE IV ONE (11:57)
[2020-09-18] MEDS ORDERED: NEOSTIGMINE 3 MG/3 ML VIAL ONE (11:57)
[2020-09-18] MEDS ORDERED: fentaNYL INJ 100 MCG/2 ML AMP ONE ×2 (11:58→15:34)
[2020-09-18] MEDS ORDERED: LIDOCAINE/EPI 1%-1:100,000 (XYLOCAINE) 20ML ONE (11:58)
[2020-09-18] MEDS ORDERED: MIDAZOLAM 2 MG/2 ML (VERSED) VIAL ONE (11:58)
[2020-09-18] MEDS ORDERED: ONDANSETRON 4 MG/2 ML (SDV) Z0FRAN IVP PRN ×2 (13:00→14:30)
[2020-09-18] MEDS ORDERED: HYDROmorphone 2 MG/ML VIAL (DILAUDID) IV ONE (13:00)
[2020-09-18] MEDS ORDERED: morphine INJ 10 MG/ML 1ML (SYR OR VIAL) IVP ONE (13:00)
[2020-09-18] MEDS ORDERED: IBUP-1780 PO (13:02)
[2020-09-18] MEDS ORDERED: OXYC1TAB87 PO (13:02)
[2020-09-18] MEDS ORDERED: DOCU-143 PO (13:02)
--- NOTE | 2020-09-18 13:04 | Discharge Inst-Surgical ---
Discharge Inst-Surgical Depart Medication/Instructions New, Converted or Re-Newed RX: RX on Chart Consults/Follow Up Patient Instructions: As directed Orders & Referrals Follow Up Appt: Return to clinic on Sunday, September 20, 2020 at 9:30 a.m. for staple removal Call to make follow up appt. for patient in 4 weeks. Activity: Rest for 24 hours, than as tolerated. Wound Care: May remove Band-Aid tomorrow. Replace as desired. Keep incisions clean and dry. Wash daily with soap and water. Please call in RX to patient pharmacy. Diet: As tolerated May shower or tub bathe as desired. No driving for 24 hours, no alcoholic beverages for 24 hours, and nothing per vagina (no tampons, douching, or intercourse) for 8 weeks. Patient to return to the clinic as soon as possible for: Temperature greater than 101F, Severe Pain, Foul discharge from incision or vagina, Excessive Bleeding (more than a period). Activity Activity as Tolerated: No Diet Discharge Diet: No Restrictions PETER WHITESIDE MD Sep 18, 2020 13:04
[2020-09-18] MEDS ORDERED: HYDROmorphone 2 MG/ML VIAL (DILAUDID) ONE (14:22)
[2020-09-18] MEDS ORDERED: KETOROLAC 30 MG/ML VIAL ONE (14:30)
[2020-09-18] MEDS ORDERED: fentaNYL INJ 100 MCG/2 ML AMP IVP PRN (14:30)
[2020-09-18] MEDS: KETOROLAC 30 MG/ML VIAL IVP SCH ×2 (14:36→20:34)
--- NOTE | 2020-09-18 14:46 | Anesthesia-General Post-Op ---
General Patient Condition Mental Status/LOC: Same as Preop Cardiovascular: Satisfactory Nausea/Vomiting: Absent Respiratory: Satisfactory Pain: Controlled Complications: Absent Post Op Complications Complications None Follow Up Care/Instructions Patient Instructions None needed. Anesthesia/Patient Condition Patient Condition Patient is doing well, no complaints, stable vital signs, no apparent adverse anesthesia problems. MILKA PEREZ DO Sep 18, 2020 14:46
[2020-09-18] MEDS ORDERED: D5 LR IV SOLUTION 1,000 ML IV ONE (15:52)
[2020-09-18] MEDS: D5 LR IV SOLUTION 1,000 ML IV SCH (16:02)
[2020-09-18] MEDS: ONDANSETRON 4 MG/2 ML (SDV) Z0FRAN IVP PRN ×2 (16:14→18:51)
[2020-09-18] MEDS: oxyCODONE/APAP 5/325MG (PERCOCET 5) TABLET PO PRN ×2 (18:51→22:55)
--- NOTE | 2020-09-18 22:12 | OPERATIVE REPORT ---
DATE OF SERVICE: 09/18/2020 PREOPERATIVE DIAGNOSES: Cervical intraepithelial neoplasia 2, menorrhagia, dysmenorrhea, pelvic pain and skin tag on the inner right thigh. POSTOPERATIVE DIAGNOSES: Cervical intraepithelial neoplasia 2, menorrhagia, dysmenorrhea, pelvic pain and skin tag on the inner right thigh with abnormal appendix as well as left ovarian cyst. OPERATIVE PROCEDURE: Total laparoscopic hysterectomy with bilateral salpingectomies, left ovarian cyst aspiration, adhesiolysis and destruction of endometriosis and appendectomy as well as removal of the skin tag from the right inner thigh. OPERATIVE DESCRIPTION: With the patient in the supine position under satisfactory general anesthesia, she was repositioned in dorsal lithotomy position in the [facility] and then prepped and draped in the usual fashion for abdominal and vaginal surgery. There was a 2 mm skin lesion near the groin on the right that was chronically irritated by this patient's garments. It was grasped and elevated and removed sharply from the skin. The site was relatively hemostatic. It was just left and covered after the procedure with a Band-Aid. Weighted speculum was now placed in posterior fornix of vagina, cervix exposed and grasped anteriorly with single tooth tenaculum. Uterus sounded to 12 cm with uterine sound. The cervix was then serially dilated with Perico dilators to accommodate a Heather II manipulator, which was placed using a 6 mm x 8 cm uterine probe and a 30 mm colpotomy ring. Sutures of #1 Vicryl placed at 3 and 9 o'clock position of the cervix to affix the uterus to the manipulator. The patient was placed in the low dorsal lithotomy position after placing a Downs catheter in the urinary bladder. A 12 mm incision was made 10 cm superior to the umbilicus. Veress needle was placed through the incision. Correct placement confirmed with water drop test. The abdomen was insufflated with 2.4 liters of carbon dioxide. The Veress needle was removed and a 12 mm Optiview laparoscopic port placed. The abdominal wall was transilluminated and ports of 8 mm were placed 8 cm lateral to the umbilicus at a level just above the umbilicus under direct vision. The patient now placed in Trendelenburg allowing the bowel spill out of the pelvis. All the port sites had been infiltrated with 0.5% lidocaine with epinephrine prior to incision. With the patient in Trendelenburg, the da Aubrey column was advanced and docked onto the patient and operative instrument placed in right and left lateral ports and I retired to the da Aubrey console. At the console using a vessel sealer on the right and a bipolar fenestrated grasper on the left, the pelvis was first examined. There were some adhesions of the sigmoid to the left pelvic brim. These were taken down sharply and bluntly allowing full access to the left ovary and fallopian tubes. Both fallopian tubes looked normal. The ovaries looked normal. There was a couple of follicular appearing cyst on the left ovary. The uterus was somewhat mottled in appearance, but otherwise normal appearing. Both ureters were clearly visible and freely peristalsing. The laparoscope was rotated. The appendix was swollen in its midportion caliber was two to three times caliber of the rest of the appendix. Decision was made to remove this as it appeared that there was either that had potentially contained the mass, so that there was some other anomaly involving the appendix. Attention was first turned to the hysterectomy and salpingectomy. The right fallopian tube was grasped and elevated using the vessel sealer. The mesosalpinx was clamped, cauterized and divided across to the base of the fallopian tube and then the uteroovarian pedicle was clamped, cauterized and divided as well in stepwise manner. This was continued across the round ligament down the broad ligament, down on the cardinal ligament, allowing for conservation of the right ovary. Same procedure performed on the left, allowing for conservation of the left ovary. The anterior lower uterine segment peritoneum was now exposed and using a monopolar shear on the right, placed the vessel sealer. The anterior lower uterine segment peritoneum was divided. The bladder was carefully dissected down off the lower uterine segment and then a colpotomy incision was started at 12 o'clock position onto the colpotomy ring. That incision was continued circumferentially until the entire colpotomy ring was exposed. The uterus was then extracted through the vagina with the tubes still attached. The vaginal cuff was closed with a single suture of V-Loc barbed suture starting from the right angle and continuing across in the usual manner the left angle where complete reapproximation was achieved. The care was taken to ensure the inclusion of the uterine vessel pedicles bilaterally. The ureters were now still clearly seemed to peristalse and were normal in caliber and were away from the areas of dissection. Attention was now turned to the appendix. The appendix was grasped and elevated. The mesoappendix was perforated close to the base of appendix. The mesoappendix was divided across ensuring hemostasis along the way and at this point, the da Aubrey portion of the procedure was complete. The da Aubrey instruments were removed. The da Aubrey column was undocked and removed from the patient. Now using the da Aubrey scope in the left lateral port, grasper in the right lateral port and an Endo-PHYLLIS in the umbilical port, the appendix was grasped and elevated. The base of the appendix was clamped and divided with the Endo-PHYLLIS. The appendix was then placed in an Endobag and brought out through the umbilical port. The stump of the appendix was copiously irrigated and then treated with several drops of Betadine solution. The pelvis was irrigated and that irrigant was aspirated out as well. With the procedure complete, no abnormal pathology remaining and no bleeding, the procedure was terminated. The operative instruments were removed under direct vision as were the ports. There was no bleeding from the puncture sites for the ports. The skin incisions were closed with morena. The fascia at the supraumbilical incision was closed with [id number] suture of 2-0 Vicryl. Sponge and needle counts were correct. Blood loss was minimal. The patient tolerated the procedure well and was uneventfully awakened from her anesthesia and transferred to recovery room in stable condition with plans for 23-hour observation. Job ID: [id number] DocumentID: [id number] Dictated Date: 09/18/2020 14:22:45 Last Trimmer Date: 09/18/2020 22:12:20 Dictated By: PETER WHITESIDE MD [facility]
[2020-09-19] MEDS: D5 LR IV SOLUTION 1,000 ML IV SCH (00:08)
[2020-09-19] MEDS ORDERED: SIMETHICONE 80 MG (MYLICON) CHEW ONE (02:02)
[2020-09-19] MEDS: KETOROLAC 30 MG/ML VIAL IVP SCH ×2 (02:13→07:55)
[2020-09-19] MEDS ORDERED: SIMETHICONE 80 MG (MYLICON) CHEW PO ONE (02:13)
[2020-09-19 02:25] VITALS: BP 99/58
[2020-09-19] MEDS: oxyCODONE/APAP 5/325MG (PERCOCET 5) TABLET PO PRN ×2 (02:43→08:19)
[2020-09-19] MEDS: ONDANSETRON 4 MG/2 ML (SDV) Z0FRAN IVP PRN (02:44)
[2020-09-19] MEDS ORDERED: CITRIC ACID/SOB CIT (BICITRA) 30 ML UDC PO ONE (03:00)
[2020-09-19] MEDS ORDERED: fentaNYL INJ 100 MCG/2 ML AMP IVP ONE (03:00)
[2020-09-19 08:01] VITALS: BP 90/51
[2020-09-19] MEDS ORDERED: DOCUSATE SODIUM 100 MG (COLACE) CAP PO SCH (09:00)
[2020-09-19] MEDS ORDERED: OXYC-556 PO (09:35)
--- NOTE | 2020-09-19 09:37 | Progress Note ---
Standard Progress Note Progress Notes/Assess & Plan Date Seen by a Provider: Sep 19, 2020 Time Seen by a Provider: 09:35 Progress/Assessment & Plan Patient is without complaint except for some shoulder pain. She did have episodes of nausea and anxiety in the night that seems to have resolved. She has taken some oral intake. She has voided twice and is ambulated. She does complain that her pain control is very adequate with her current medication. She denies headache or shortness of breath. Vital Signs Date Time Temp Pulse Resp B/P (MAP) Pulse Ox O2 Delivery O2 Flow Rate FiO2 09/19/20 08:01 36.7 74 16 90/51 (64) 99 Room Air 09/19/20 02:25 37.0 88 20 99/58 (72) 100 09/18/20 22:54 36.9 100 16 120/80 (93) 99 09/18/20 19:31 36.8 89 16 115/81 (92) 96 09/18/20 17:45 36.4 86 16 120/76 (91) 100 Room Air 09/18/20 16:00 71 16 107/77 (87) 99 Room Air 09/18/20 15:37 36.8 69 16 127/87 (100) 97 Room Air 09/18/20 15:25 36.3 20 127/78 (94) 99 Room Air 09/18/20 15:25 Room Air 09/18/20 15:15 Room Air 09/18/20 15:10 20 112/74 (87) 99 OxyMask 3 09/18/20 15:00 OxyMask 3 09/18/20 15:00 20 124/86 (99) 100 OxyMask 3 09/18/20 14:50 20 121/89 (100) 100 OxyMask 5 09/18/20 14:45 OxyMask 6 09/18/20 14:40 20 123/90 (101) 100 OxyMask 6 09/18/20 14:29 36.3 20 107/60 (76) 100 OxyMask 6 09/18/20 14:29 OxyMask 6 09/18/20 11:56 36.9 85 18 120/78 (92) 99 Room Air I & O 09/19/20 07:00 Intake Total 2190 ml Output Total 325 ml Balance 1865 ml Vital signs are stable. Patient is afebrile. The abdomen is benign. Extremities show no clubbing or cyanosis. There is no Homans' sign. Assessment and plan postoperative day #1 doing relatively well. We will change her medication from the Percocet 10/14/2024 to a 03/16/2025 for better pain control. Plan is for discharge home when she is ambulating, voiding, tolerating oral intake well and has good pain control with oral medication. Final Diagnosis [id number] PETER WHITESIDE MD Sep 19, 2020 09:37
[2020-09-19] MEDS ORDERED: methylPREDNISolone 40 MG/ML (Solu-MEDROL) VIAL IV ONE (09:45)
[2020-09-19] MEDS: oxyCODONE/APAP 10/325MG (PERCOCET 10) TABLET PO PRN ×2 (09:53→12:37)
[2020-09-19] MEDS ORDERED: CHLORASEPTIC LOZENGE MM ONE (10:49)
[2020-09-19] MEDS ORDERED: CHLORASEPTIC LOZENGE MM PRN (11:00)
[2020-09-19] MEDS ORDERED: IBUPROFEN 800 MG (MOTRIN) TAB PO SCH (14:30)
== END 2020-09-19 13:25 | disposition home or self-care (01) ==
LOC: SDC 10:57 → WS 15:22 → SDC 09-19 13:25
PROVIDERS: ATTEND Obstetrics & Gynecology
DX: N87.1 Moderate cervical dysplasia (principal); N92.0 Excessive and frequent menstruation with regular cycle; N94.6 Dysmenorrhea, unspecified; L91.8 Other hypertrophic disorders of the skin; N81.2 Incomplete uterovaginal prolapse; K38.9 Disease of appendix, unspecified; N83.202 Unspecified ovarian cyst, left side; K66.0 Peritoneal adhesions (postprocedural) (postinfection); Z88.8 Allergy status to other drugs, medicaments and biological substances; Z79.899 Other long term (current) drug therapy; Z83.3 Family history of diabetes mellitus
CPT/HCPCS: 36415; 84703; 85025; 86850; 86900; 86901; 87081; 88304; 88307; 94664

== ENCOUNTER 2020-09-24 13:24 | Outpatient (CLI) | payer OTHER ==
[~2020-09-24] VITALS: Ht 167 cm; Wt 58.0 kg
[2020-09-24] VITALS (7 sets, daily range): BP systolic 103–118; BP diastolic 58–79
[~2020-09-24 13:24] MED LIST changes: +DOCU-143 PO; +IBUP-1780 PO; +OXYC-556 PO; +OXYC1TAB87 PO
[2020-09-24] MEDS ORDERED: diphenhydrAMINE 25 MG TAB (BENADRYL) PO ONE (14:00)
[2020-09-24] MEDS ORDERED: NS IV 500 ML 500 ML IV ONE (14:00)
[2020-09-24] MEDS ORDERED: ACETAMINOPHEN 325 MG TABLET PO ONE (14:00)
== END 2020-09-24 18:35 | disposition home or self-care (01) ==
LOC: SDC 13:24
PROVIDERS: ATTEND Obstetrics & Gynecology
DX: D50.0 Iron deficiency anemia secondary to blood loss (chronic) (principal)
CPT/HCPCS: 36430; 86850; 86900; 86901; 86920; P9016

== ENCOUNTER → 2020-09-27 | Outpatient (CLI) | payer OTHER ==
[~2020-09-27] MED LIST changes: +CATHETER FLUSH 10 ML SYR IV PRN; +HOLD METFORMIN - RECEIVED CONTRAST 20 ML VIAL IV SCH; +IOHEXOL 350 MG/ML 100 ML (OMNIPAQUE 350) VIAL IV ONE; +NS 100 ML (IVPB) BAG IV ONE
--- NOTE | 2020-09-27 09:35 | Diagnostic Imaging Report ---
Procedure: CT abdomen with contrast only. Technique: Multiple contiguous axial images were obtained through the abdomen after the administration of intravenous contrast. Auto Exposure Controls were utilized during the CT exam to meet ALARA standards for radiation dose reduction. Date: September 27, 2020. Indication: 30-year-old female, abdominal wall contusion. Abdominal pain and bleeding. History of hysterectomy on September 18, 2020. Comparison: CT abdomen and pelvis June 20, 2020. Findings: The visualized portions of the lung bases are clear. The heart is not enlarged. There is no identified pericardial effusion. The liver is normal in size and contour. There is no identified liver laceration. There is no perihepatic fluid. The main, right, left portal veins are patent. There is no focal liver lesion. The gallbladder is unremarkable. There is no biliary ductal dilation. The main pancreatic duct is not abnormally dilated. Unremarkable appearance of the pancreatic parenchyma. The spleen is normal in size. The adrenal glands are unremarkable. Unremarkable appearance of the renal parenchyma. The urinary collecting systems are not distended in their visualized segments. The visualized segments of the intestinal tract are not distended. There is a cystic lesion in the left adnexa measuring 2.2 cm in size on axial image 62 most likely relating to ovarian follicle or cyst. There is a small amount of free pelvic fluid with attenuation of 47 Hounsfield units. This may reflect blood product. There are small foci of free intraperitoneal air in the upper abdomen such as on axial image 10 and adjacent sequential images. There is mild generalized peritoneal stranding. There is no identified abnormally enlarged lymph node in the abdomen meeting size criteria for adenopathy. There is a small focus of subcutaneous gas in the left lateral anterior abdominal wall on axial image 39. There is no identified focal fluid collection. There is no identified acute bony abnormality. It should be noted that the pelvis is not in the included field of view of imaging. Impression: 1. Small amount of free fluid in the lower abdomen with high internal attenuation. This is concerning for blood products. 2. The pelvis is not in the included field of view of imaging. 3. Small foci of free intraperitoneal air which potentially could relate to recent surgery although correlation is recommended for symptoms. 4. A small focus of gas in the lateral aspect of the anterior abdominal wall with very mild adjacent inflammatory stranding. No sizable focal fluid collection. 5. No evidence of an abdominal parenchymal organ injury. Dictated by: Dictated on workstation # [id number]
== END ==
LOC: RAD 09:15
PROVIDERS: ATTEND Obstetrics & Gynecology
DX: S30.1XXA Contusion of abdominal wall, initial encounter (principal); Z90.710 Acquired absence of both cervix and uterus; Z98.890 Other specified postprocedural states
CPT/HCPCS: 74160

== ENCOUNTER → 2021-06-30 | Outpatient (CLI) | payer OTHER ==
[~2021-06-30] MED LIST changes: -CATHETER FLUSH 10 ML SYR IV PRN; +GADOTERATE 0.5 MMOL/ML (CLARISCAN) 15 ML VIAL IV ONE; -HOLD METFORMIN - RECEIVED CONTRAST 20 ML VIAL IV SCH; -IOHEXOL 350 MG/ML 100 ML (OMNIPAQUE 350) VIAL IV ONE; -NS 100 ML (IVPB) BAG IV ONE; +TIZA-186; -TIZA4TAB4
--- NOTE | 2021-06-30 10:41 | Diagnostic Imaging Report ---
CLINICAL INDICATIONS: Patient with low back pain and numbness and tingling in the pelvis area. Patient has been falling. EXAM: MRI of the lumbar spine performed without and with 10 mL of Clariscan IV contrast. Sequences include sagittal T2, sagittal T1, sagittal T2 fat-sat, axial T2, axial T1, axial T1 post IV contrast, and sagittal T1 fat-sat post IV contrast. COMPARISON: None. FINDINGS: There is no abnormal IV contrast enhancement. Lumbar spine has normal alignment with no acute fracture or dislocation. The lumbar vertebra have normal T1-T2 signal. Vascular linear enhancement is noted within the thecal sac. The visualized portions of the distal thoracic spinal cord, conus medullaris, and cauda equina nerve roots are unremarkable. The conus medullaris tip is seen at the upper L1 vertebral body level. Is no significant paraspinal soft tissue abnormality. L1-L2, L2-L3, L3-L4, and L4-L5: Unremarkable. L5-S1: There is mild loss of disk space height, slightly low T2 signal involving the L5-S1 disk. There is a subtle central posterior disk bulge with annular tear. There is no significant central canal or neural foramen narrowing. IMPRESSION: 1.: Mild disk disease at the L5-S1 level with subtle posterior disk bulge with annular tear. There is no significant central spinal canal or neural foramen narrowing. 2: Otherwise, unremarkable MRI of the lumbar spine. There is no abnormal IV contrast enhancement. Dictated by: Dictated on workstation # [id number]
== END ==
LOC: RAD 09:05
PROVIDERS: ATTEND Family Medicine
DX: M51.27 Other intervertebral disc displacement, lumbosacral region (principal); M51.37 Other intervertebral disc degeneration, lumbosacral region
CPT/HCPCS: 72158

== ENCOUNTER → 2022-07-06 | Outpatient (CLI) | payer OTHER ==
[~2022-07-06] MED LIST changes: -GADOTERATE 0.5 MMOL/ML (CLARISCAN) 15 ML VIAL IV ONE
== END ==
LOC: CARD 08:12
PROVIDERS: ATTEND Family Medicine
DX: R00.0 Tachycardia, unspecified (principal)
CPT/HCPCS: 93225; 93226

== ENCOUNTER → 2022-07-31 | Outpatient (CLI) | payer OTHER | LOC: CARD 13:46 | PROVIDERS: ATTEND Physician Assistant | DX: R00.2 Palpitations (principal) | CPT/HCPCS: 93306 ==

== ENCOUNTER → 2022-08-10 | Outpatient (CLI) | payer OTHER ==
[~2022-08-10] MED LIST changes: +CATHETER FLUSH 10 ML SYR IVP PRN; +REGADENOSON 0.4 MG/5 ML SYR (LEXISCAN) IV ONE
[2022-08-10 09:39] VITALS: BP 119/81
--- NOTE | 2022-08-10 12:20 | Cardiology Stress Test Report ---
Stress Test Report Date of Procedure/Referring: Date of Procedure: Aug 10, 2022 PCP Ana Chaney MD Admitting Physician Admitting Physician: Attending Physician: Damaris Rivera Indications: Palpitation Baseline Heart Rate: 73 Baseline Blood Pressure: Blood Pressure Systolic: 119 Blood Pressure Diastolic: 81 Vital Signs Date Time Temp Pulse Resp B/P (MAP) Pulse Ox O2 Delivery O2 Flow Rate FiO2 08/10/22 09:39 73 119/81 (94) Baseline Vital Signs Vital Signs Date Time Temp Pulse Resp B/P (MAP) Pulse Ox O2 Delivery O2 Flow Rate FiO2 08/10/22 09:39 73 119/81 (94) Baseline EKG: Baseline EKG: NSR Summary: After explaining the procedure and details to the patient, she signed the consent and was brought to the stress nuclear laboratory. Patient exercised on standard Jim protocol, EKG, heart rate and blood pressure were monitored continuously, resting and stress doses of radio tracer were injected, imaging was acquired and reviewed in the short axis, horizontal long axis and vertical long axis views Patient was able to exercise for a total of 7 minutes on Jim protocol, METs 7.1 Maximum heart rate 160 Maximum blood pressure 152/89 Stress EKG, Minimal nondiagnostic changes Recovery EKG, Return to baseline TID: 1.15 SSS: 1 SDS: 1 EF: 51 Conclusion: Fair exercise tolerance for a total of 7 minutes on standard Jim protocol, 7.1 METS achieving 86% of maximum expected heart rate Appropriate heart rate and blood pressure response to exercise return to baseline during recovery No arrhythmia noted during stress test No ischemia or infarction noted on SPECT images Normal left ventricular size, ejection fraction 51% Copy Copies To 1: [facility]/ANDRE HANSON MD Aug 10, 2022 12:20
== END ==
LOC: CARD 08:14
PROVIDERS: ATTEND Physician Assistant
DX: R00.2 Palpitations (principal); R55 Syncope and collapse
CPT/HCPCS: 78452; 93017; A9502

== ENCOUNTER 2022-08-17 08:26 | Day surgery (SDC) | payer OTHER ==
[~2022-08-17] VITALS: Ht 167.6 cm; Wt 54.9 kg
[2022-08-17] VITALS (43 sets, daily range): BP systolic 70–124; BP diastolic 20–97
[~2022-08-17 08:26] MED LIST changes: -CATHETER FLUSH 10 ML SYR IVP PRN; -REGADENOSON 0.4 MG/5 ML SYR (LEXISCAN) IV ONE
[2022-08-17] MEDS ORDERED: NS IV 1000 ML 1,000 ML ONE (08:42)
[2022-08-17] MEDS ORDERED: ATROPINE INJECTION 1 MG/10 ML SYR (ABBOTT) ONE (08:42)
[2022-08-17] MEDS ORDERED: NS IV 1000 ML 1,000 ML IV SCH (08:45)
[2022-08-17] MEDS ORDERED: BACL10TA PO (09:01)
[2022-08-17] MEDS ORDERED: DULO60CA7 PO (09:01)
[2022-08-17] MEDS ORDERED: METH10CP PO (09:01)
--- NOTE | 2022-08-17 11:00 | Cardiology Tilt Table Test ---
Cardiology-Tilt Table Test Tilt Table Test Date 08/17/22 Baseline Vitals Vital Signs Date Time Temp Pulse Resp B/P (MAP) Pulse Ox O2 Delivery O2 Flow Rate FiO2 08/17/22 08:52 89 20 113/80 (91) 100 Room Air Vital Signs VS - Last 72 Hours, by Label 08/17/22 08/17/22 08/17/22 08/17/22 08:52 10:14 10:15 10:16 Pulse 89 87 84 93 Resp 20 19 21 B/P (MAP) 113/80 (91) 118/90 (99) 122/97 (105) 121/88 (99) Pulse Ox 100 100 100 100 O2 Delivery Room Air Room Air Room Air Room Air 08/17/22 08/17/22 08/17/22 08/17/22 10:17 10:18 10:19 10:20 Pulse 86 96 87 90 Resp 20 16 16 14 B/P (MAP) 123/89 (100) 119/83 (95) 117/79 (92) 112/80 (91) Pulse Ox 100 100 100 100 O2 Delivery Room Air Room Air Room Air Room Air 08/17/22 08/17/22 08/17/22 08/17/22 10:21 10:22 10:23 10:24 Pulse 89 88 85 102 Resp 14 14 14 14 B/P (MAP) 120/80 (93) 110/82 (91) 117/71 (86) 113/79 (90) Pulse Ox 100 100 100 100 O2 Delivery Room Air Room Air Room Air Room Air 08/17/22 08/17/22 08/17/22 08/17/22 10:25 10:26 10:27 10:28 Pulse 92 92 96 98 Resp 16 13 14 16 B/P (MAP) 117/77 (90) 114/84 (94) 121/85 (97) 124/71 (88) Pulse Ox 100 99 99 99 O2 Delivery Room Air Room Air Room Air Room Air 08/17/22 08/17/22 08/17/22 08/17/22 10:29 10:30 10:31 10:32 Pulse 98 120 144 144 Resp 16 14 14 B/P (MAP) 118/77 (91) 104/70 (81) 102/65 (77) Pulse Ox 99 98 98 O2 Delivery Room Air Room Air Room Air 3/608/17/22 08/17/22 08/17/22 10:33 10:34 10:35 10:36 Pulse 144 147 96 92 Resp 17 17 23 B/P (MAP) 93/62 (72) 88/58 (68) 91/44 (60) 97/83 (88) Pulse Ox 99 100 98 98 O2 Delivery Room Air Room Air Room Air Room Air 08/17/22 08/17/22 08/17/22 08/17/22 10:38 10:39 10:41 10:42 Pulse 86 90 103 102 Resp 21 B/P (MAP) 104/32 (56) 70/20 (37) 105/59 (74) Pulse Ox 98 100 100 98 O2 Delivery Room Air Room Air Room Air Room Air 08/17/22 08/17/22 08/17/22 08/17/22 10:43 10:44 10:45 10:46 Pulse 92 83 84 82 Resp 20 20 20 20 B/P (MAP) 100/61 (74) 106/71 (83) 102/68 (79) 99/65 (76) Pulse Ox 100 100 100 99 O2 Delivery Room Air Room Air Room Air Room Air 08/17/22 08/17/22 08/17/22 08/17/22 10:48 10:50 10:51 10:53 Pulse 75 85 72 71 Resp 20 24 22 20 B/P (MAP) 102/62 (75) 102/71 (81) 101/63 (76) 96/66 (76) Pulse Ox 99 100 99 100 O2 Delivery Room Air Room Air Room Air Room Air 08/17/22 08/17/22 08/17/22 10:54 10:58 11:00 Pulse 76 84 81 Resp 20 20 18 B/P (MAP) 105/69 (81) 106/84 (91) 110/78 (89) Pulse Ox 98 98 98 O2 Delivery Room Air Room Air Room Air Patient was tilted to 75 degrees for [10] minutes, then returned to supine position, given [2] sublingual nitroglycerin tablets, then tilted again to 75 degrees for [15] minutes. During test, patient was: had a syncopal event at minute (11, stage 2 with blood pressure 70/20) In Conclusion;: Vasovagal Syncope with (Vasodepressor Syncope) Patient had a positive tilt table test with vasodepressor syncope. She was instructed to increase fluid and salt intake, use compression stockings. If patient continues to be symptomatic, will consider use of Florinef. This is Damaris Amaya PA-C, as a scribe for Dr. Juan. DAMARIS LANDON Aug 17, 2022 11:00 ANDRE JUAN MD Aug 17, 2022 11:04
== END 2022-08-17 11:20 | disposition home or self-care (01) ==
LOC: CATH 08:26
PROVIDERS: ATTEND Internal Medicine Cardiovascular Disease
DX: R55 Syncope and collapse (principal); R00.2 Palpitations; R42 Dizziness and giddiness; G47.00 Insomnia, unspecified; G11.4 Hereditary spastic paraplegia
CPT/HCPCS: 93660